=== PATIENT | male | born 1950 | race Caucasian/White ===

== ENCOUNTER 2020-02-06 11:26 | Inpatient (IN) | payer MEDICARE, MEDICAID ==
[2020-02-06] VITALS (7 sets, daily range): BP systolic 135–139; BP diastolic 80–88
[~2020-02-06] VITALS: Ht 182.9 cm; Wt 90.3 kg
[~2020-02-06 11:26] MED LIST: ASPI-1265 PO; CARV3.122 PO; CLOP75TA33 PO; LISI-600 PO
[2020-02-06] MEDS ORDERED: HYDR-4353 PO (12:01)
[2020-02-06] MEDS ORDERED: ATOR40TA PO (12:03)
[2020-02-06] MEDS ORDERED: LORazepam 0.5 MG tablet PO PRN (12:15)
[2020-02-06] MEDS ORDERED: diphenhydrAMINE 25mg capsule PO PRN (12:15)
[2020-02-06] MEDS: normal saline 1,000 ML IV SCH ×2 (16:11→22:15)
[2020-02-06] MEDS ORDERED: LIDOcaine 1% (10mg/ml)w/preservative injection 20ml MDV ONE (19:18)
[2020-02-06] MEDS ORDERED: midazolam 2 mg/2 ml injection ONE (19:18)
[2020-02-06] MEDS ORDERED: fentaNYL/PF 50MCG/1 ML 2ML syringe ONE (19:18)
[2020-02-06] MEDS ORDERED: iohexol 350MG/ML 100ml bottle IV ONE (19:18)
--- NOTE | 2020-02-06 19:38 | NUR ---
Pt taken to the grass farm laborer.
[2020-02-06] MEDS ORDERED: OXAZEpam 15mg capsule PO PRN (20:55)
[2020-02-06] MEDS ORDERED: ondansetron/PF 4mg/2ml inj IV PRN (20:55)
[2020-02-06] MEDS ORDERED: acetaminophen 325mg tablet PO PRN (20:55)
[2020-02-06] MEDS ORDERED: HYDROcodone/acetaminophen 10/325mg tab PO PRN (20:55)
[2020-02-06] MEDS ORDERED: proCHLORperazine 10 MG/2 ml inj IV PRN (20:55)
[2020-02-07] MEDS: HYDROcodone/acetaminophen 10/325mg tab PO SCH ×4 (02:00→20:00)
[2020-02-07 02:48] VITALS: BP 124/79
[2020-02-07 06:11] LABS: BASOPHILS % (AUTO) 0.8 % (0-1); EOSINOPHILS # (AUTO) 0.3 X10'3 (0-0.9); EOSINOPHILS % (AUTO) 5.4 % (0-6); HEMATOCRIT 45.6 % (42.0-52.0); HEMOGLOBIN 15.5 g/dl (14.0-17.9); LYMPHOCYTES # (AUTO) 0.5 X10'3 (1.1-4.8); LYMPHOCYTES % (AUTO) 9.8 % (21-51); MEAN CORPUSCULAR HEMOGLOBIN 36.2 PG (27.0-31.0); MEAN CORPUSCULAR HGB CONC 33.9 g/dL (33.0-36.5); MEAN CORPUSCULAR VOLUME 106.9 FL (78-98); MEAN PLATELET VOLUME 8.2 FL (7.4-10.4); MONOCYTES # (AUTO) 0.4 X10'3 (0-0.9); MONOCYTES % (AUTO) 7.5 % (2-12); NEUTROPHILS # (AUTO) 4.2 X10'3 (1.8-7.7); NEUTROPHILS % (AUTO) 76.5 % (42-75); PLATELET COUNT 150 X10'3 (140-440); RED BLOOD COUNT 4.27 X10'6 (4.70-6.10); RED CELL DISTRIBUTION WIDTH 13.9 % (11.5-14.5); WHITE BLOOD COUNT 5.5 X10'3 (4.5-11.0)
[2020-02-07 06:31] LABS: ALANINE AMINOTRANSFERASE 19 U/L (12-78); ALBUMIN 3.1 G/DL (3.4-5.0); ALBUMIN/GLOBULIN RATIO 0.7 (1.1-1.5); ALKALINE PHOSPHATASE 66 IU/L (46-116); ANION GAP 8 (8-16); ASPARTATE AMINO TRANSFERASE 18 U/L (10-37); BILIRUBIN,TOTAL 1.5 MG/DL (0.1-1.0); BLOOD UREA NITROGEN 21 MG/DL (7-18); BUN/CREATININE RATIO 16.8 (5.4-32.0); CALCIUM 7.4 MG/DL (8.5-10.1); CHLORIDE 109 MMOL/L (99-107); CHOL/HDL RATIO 5.1 (0.00-4.99); CHOLESTEROL 184 MG/DL (0-200); CREATININE 1.25 MG/DL (0.60-1.10); GLUCOSE 93 MG/DL (70-104); HDL CHOLESTEROL 36 MG/DL (35-60); LDL CHOLESTEROL 126 MG/DL (50-100); POTASSIUM 3.9 MMOL/L (3.5-5.1); SODIUM 141 MMOL/L (135-145); TOTAL CARBON DIOXIDE 23.7 MMOL/L (24-32); TOTAL PROTEIN 7.8 G/DL (6.4-8.2); TRIGLYCERIDES 124 MG/DL (20-135); eGFR 57 ML/MIN
[2020-02-07 07:00] VITALS: BP 150/90
--- NOTE | 2020-02-07 07:19 | NUR ---
Patient in room PCU 3013. I have received report from Yanira LINCOLN and had the opportunity to ask questions and assume patient care.
[2020-02-07] MEDS: carVEDilol 3.125mg tablet PO SCH ×2 (07:33→20:56)
[2020-02-07] MEDS: aspirin 81mg tab.chew PO SCH (07:33)
[2020-02-07] MEDS: atorvastatin 20mg tablet PO SCH (07:33)
[2020-02-07] MEDS ORDERED: heparin 10,000 units/1 ML INJ ONE ×2 (08:00)
[2020-02-07] MEDS ORDERED: sodium bicarbonate (8.4%) 1 mEq/ml syringe ONE (08:00)
[2020-02-07] MEDS ORDERED: MAGNESIUM SULFATE 4 MEQ/ML (5gm/10ml) injection ONE (08:00)
[2020-02-07] MEDS ORDERED: calcium chloride 100 MG/1 ML inj IV ONE (08:00)
[2020-02-07] MEDS ORDERED: heparin 1,000 units/ml 10ml inj ONE (08:00)
[2020-02-07] MEDS ORDERED: LIDOcaine 2% (20 mg/ml) 5ml cardiac syringe ONE (08:00)
[2020-02-07] MEDS ORDERED: phenylephrine 10mg/ml inj. ONE (08:00)
[2020-02-07] MEDS ORDERED: methylPREDNISolone sod. succ. 500mg inj ONE (08:00)
[2020-02-07] MEDS ORDERED: aminocaproic acid 250 MG/1 ML inj. ONE (08:00)
[2020-02-07] MEDS ORDERED: etomidate 2mg/ml inj. ONE (08:00)
[2020-02-07] MEDS ORDERED: potassium Cl 2 mEq/ml inj IV ONE (08:00)
[2020-02-07] MEDS ORDERED: albumin (human) 25% 100 ML IV solution IV ONE (08:00)
[2020-02-07 09:24] LABS: PARTIAL THROMBOPLASTIN TIME 26 SECONDS (22-32)
[2020-02-07 11:00] VITALS: BP 124/77
[2020-02-07 11:20] LABS: CLARITY,URINE CLEAR (Clear); COLOR,URINE YELLOW (Yellow); GLUCOSE, URINE NEGATIVE (Neg); KETONES,URINE NEGATIVE (Neg); LEUKOCYTE ESTERASE ,URINE NEGATIVE (Neg); NITRITES, URINE NEGATIVE (Neg); OCCULT BLOOD,URINE NEGATIVE (Neg); PROTEIN,URINE NEGATIVE (Neg); UA COLLECTION TYPE CLN CATCH MIDSTREAM
[2020-02-07 11:40] LABS: ABG BASE EXCESS -5.1 mmol/L (-2.0-2.0); ABG HCO3 18.1 mmol/L (22.0-26.0); ABG OXYGEN SATURATION 95.2 % (94-97); ABG PCO2 (T) 29.4 mmHg (35.0-48.0); ABG PO2 (T) 76.6 mmHg (75.0-100.0); ALLEN'S TEST POSITIVE; FCOHb 0.7 % (0.0-3.9); FMetHb 0.2 % (0.0-1.5); FO2Hb 94.3 % (94-97); TOTAL HEMOGLOBIN 15.7 G/dl (14.0-18.0)
[2020-02-07] MEDS ORDERED: iohexol 350MG/ML 100ml bottle IV ONE (12:20)
--- NOTE | 2020-02-07 14:19 | NUR ---
Problems reprioritized. Patient report given, questions answered & plan of care reviewed with Barbara LINCOLN. Patient is resting comfortably in no apparent distress.
--- NOTE | 2020-02-07 14:19 | NUR ---
Patient in room PCU 3013. I have received report from Leslie LINCOLN and had the opportunity to ask questions and assume patient care.
[2020-02-07 15:00] VITALS: BP 128/84
[2020-02-07] MEDS: HYDROcodone/acetaminophen 5mg/325mg tablet PO PRN (15:48)
[2020-02-07 18:00] VITALS: BP 151/88
--- NOTE | 2020-02-07 18:14 | NUR ---
Problems reprioritized. Patient report given, questions answered & plan of care reviewed with Twin RN.
--- NOTE | 2020-02-07 19:08 | NUR ---
Patient in room PCU 3013. I have received report from Barbara LINCOLN and had the opportunity to ask questions and assume patient care.
[2020-02-07 22:00] VITALS: BP 122/74
[2020-02-08 02:00] VITALS: BP 120/76
[2020-02-08] MEDS: HYDROcodone/acetaminophen 10/325mg tab PO SCH ×4 (02:00→19:23)
--- NOTE | 2020-02-08 06:03 | NUR ---
Problems reprioritized. Patient report given, questions answered & plan of care reviewed with Barbara LINCOLN. Patient is resting comfortably and is no distress and this time.
--- NOTE | 2020-02-08 06:25 | NUR ---
Patient in room PCU 3013. I have received report from Twin LINCOLN and had the opportunity to ask questions and assume patient care.
[2020-02-08 07:00] VITALS: BP 94/65
[2020-02-08] MEDS: atorvastatin 20mg tablet PO SCH (07:35)
[2020-02-08] MEDS: aspirin 81mg tab.chew PO SCH (07:35)
[2020-02-08] MEDS: carVEDilol 3.125mg tablet PO SCH ×2 (07:36→19:21)
[2020-02-08 09:40] LABS: BASOPHILS % (AUTO) 0.5 % (0-1); EOSINOPHILS # (AUTO) 0.3 X10'3 (0-0.9); EOSINOPHILS % (AUTO) 4.4 % (0-6); HEMATOCRIT 42.3 % (42.0-52.0); HEMOGLOBIN 14.3 g/dl (14.0-17.9); LYMPHOCYTES # (AUTO) 0.5 X10'3 (1.1-4.8); LYMPHOCYTES % (AUTO) 8.6 % (21-51); MEAN CORPUSCULAR HEMOGLOBIN 35.7 PG (27.0-31.0); MEAN CORPUSCULAR HGB CONC 33.7 g/dL (33.0-36.5); MEAN CORPUSCULAR VOLUME 105.7 FL (78-98); MEAN PLATELET VOLUME 8.1 FL (7.4-10.4); MONOCYTES # (AUTO) 0.5 X10'3 (0-0.9); MONOCYTES % (AUTO) 7.4 % (2-12); NEUTROPHILS # (AUTO) 4.9 X10'3 (1.8-7.7); NEUTROPHILS % (AUTO) 79.1 % (42-75); PLATELET COUNT 150 X10'3 (140-440); RED CELL DISTRIBUTION WIDTH 13.9 % (11.5-14.5); WHITE BLOOD COUNT 6.1 X10'3 (4.5-11.0)
[2020-02-08 09:46] LABS: ALBUMIN 2.9 G/DL (3.4-5.0); ANION GAP 4 (8-16); BLOOD UREA NITROGEN 19 MG/DL (7-18); BUN/CREATININE RATIO 17.6 (5.4-32.0); CALCIUM 8.3 MG/DL (8.5-10.1); CHLORIDE 106 MMOL/L (99-107); CREATININE 1.08 MG/DL (0.60-1.10); GLUCOSE 93 MG/DL (70-104); POTASSIUM 4.2 MMOL/L (3.5-5.1); SODIUM 138 MMOL/L (135-145); eGFR 67 ML/MIN
[2020-02-08 11:00] VITALS: BP 125/79
[2020-02-08 15:00] VITALS: BP 120/78
--- NOTE | 2020-02-08 17:12 | NUR ---
[place]rientee documentation: I have reviewed and agree with all interventions, assessments performed and documented by Mendy LINCOLN [place] Medication Administration: For this medication-pass time frame, all medication were reviewed, dispensed, administered and documented per hospital policy by Mendy LINCOLN.
[2020-02-08 18:00] VITALS: BP 125/77
--- NOTE | 2020-02-08 18:00 | NUR ---
Patient in room PCU 3013. I have received report from Barbara LINCOLN and had the opportunity to ask questions and assume patient care.
--- NOTE | 2020-02-08 18:23 | NUR ---
Problems reprioritized. Patient report given, questions answered & plan of care reviewed with Twin RN.
[2020-02-08 22:00] VITALS: BP 125/73
[2020-02-08] MEDS: HYDROcodone/acetaminophen 5mg/325mg tablet PO PRN (23:03)
[2020-02-09 02:00] VITALS: BP 115/70
[2020-02-09 06:00] VITALS: BP 105/72
--- NOTE | 2020-02-09 06:00 | NUR ---
Patient in room PCU 3013. I have received report from JIM LINCOLN and had the opportunity to ask questions and assume patient care.
--- NOTE | 2020-02-09 06:37 | NUR ---
Problems reprioritized. Patient report given, questions answered & plan of care reviewed with Gloria LINCOLN. Patient is stable and resting comfortably at this time.
[2020-02-09 06:41] LABS: ALBUMIN 2.9 G/DL (3.4-5.0); ANION GAP 6 (8-16); BLOOD UREA NITROGEN 21 MG/DL (7-18); BUN/CREATININE RATIO 17.8 (5.4-32.0); CALCIUM 8.1 MG/DL (8.5-10.1); CHLORIDE 106 MMOL/L (99-107); CREATININE 1.18 MG/DL (0.60-1.10); GLUCOSE 86 MG/DL (70-104); POTASSIUM 3.7 MMOL/L (3.5-5.1); SODIUM 139 MMOL/L (135-145); TOTAL CARBON DIOXIDE 26.9 MMOL/L (24-32); eGFR 61 ML/MIN
[2020-02-09] MEDS: carVEDilol 3.125mg tablet PO SCH ×2 (07:51→20:03)
[2020-02-09] MEDS: aspirin 81mg tab.chew PO SCH (07:51)
[2020-02-09] MEDS: atorvastatin 20mg tablet PO SCH (07:51)
[2020-02-09] MEDS ORDERED: Insulin Reg/NS 100units/100mL 100 ML IV SCH (09:31)
[2020-02-09] MEDS ORDERED: gabapentin 400mg capsule PO ONE (09:35)
[2020-02-09] MEDS ORDERED: MALTODEXTRIN/FRUCTOSE 0.68 KCAL/ML LIQUID 296ML BOTTLE PO ONE (09:35)
[2020-02-09] MEDS ORDERED: MESSAGE TO NURSING PO ONE (09:35)
[2020-02-09] MEDS ORDERED: vancomycin/NS 1 GM ADD-VANTAGE 250 ML IV ONE (09:35)
[2020-02-09] MEDS ORDERED: dextrose 50%-water 50ml dispensing syringe IV PRN (09:35)
[2020-02-09] MEDS ORDERED: cefazolin/dext.iso 2gm/50ml 50 ML IV ONE (09:35)
[2020-02-09] MEDS ORDERED: insulin glargine (Lantus) pen - multi-dose SQ PRN (09:35)
[2020-02-09] MEDS ORDERED: ringers solution, lacted 1,000 ML IV ONE (09:43)
--- NOTE | 2020-02-09 10:41 | NUR ---
Spoke with Brie from [facility] and confirmed they have blood units available for scheduled surgery as ordered by .
[2020-02-09 11:00] VITALS: BP 133/77
[2020-02-09 15:00] VITALS: BP 120/72
[2020-02-09 18:00] VITALS: BP 148/93
--- NOTE | 2020-02-09 18:26 | NUR ---
Problems reprioritized. Patient report given, questions answered & plan of care reviewed with SHIRLENE RN.
--- NOTE | 2020-02-09 18:30 | NUR ---
Patient in room PCU 3013. I have received report from Linda LINCOLN and had the opportunity to ask questions and assume patient care.
[2020-02-09 22:00] VITALS: BP 126/72
[2020-02-09] MEDS ORDERED: mupirocin 2% nasal ointment 1gm UD NS SCH (22:51)
[2020-02-10] VITALS (24 sets, daily range): BP systolic 79–128; BP diastolic 44–86
[2020-02-10] MEDS ORDERED: MALTODEXTRIN/FRUCTOSE 0.68 KCAL/ML LIQUID 296ML BOTTLE PO ONE
[2020-02-10] MEDS ORDERED: vancomycin/NS 1 GM ADD-VANTAGE 250 ML IV ONE (05:00)
[2020-02-10] MEDS ORDERED: ROPIVAcaine 0.5% (5mg/ml) 30ml vial ONE (05:07)
[2020-02-10 05:27] LABS: BASOPHILS % (AUTO) 0.4 % (0-1); EOSINOPHILS # (AUTO) 0.3 X10'3 (0-0.9); EOSINOPHILS % (AUTO) 3.8 % (0-6); HEMATOCRIT 43.4 % (42.0-52.0); LYMPHOCYTES # (AUTO) 0.7 X10'3 (1.1-4.8); MEAN CORPUSCULAR HEMOGLOBIN 36.3 PG (27.0-31.0); MEAN CORPUSCULAR HGB CONC 34.5 g/dL (33.0-36.5); MEAN PLATELET VOLUME 8.3 FL (7.4-10.4); MONOCYTES # (AUTO) 0.7 X10'3 (0-0.9); MONOCYTES % (AUTO) 9.1 % (2-12); NEUTROPHILS # (AUTO) 5.7 X10'3 (1.8-7.7); NEUTROPHILS % (AUTO) 76.7 % (42-75); PLATELET COUNT 138 X10'3 (140-440); RED BLOOD COUNT 4.14 X10'6 (4.70-6.10); RED CELL DISTRIBUTION WIDTH 13.9 % (11.5-14.5); WHITE BLOOD COUNT 7.5 X10'3 (4.5-11.0)
[2020-02-10] MEDS ORDERED: gabapentin 400mg capsule PO ONE (05:30)
[2020-02-10] MEDS ORDERED: cefazolin/dext.iso 2gm/50ml 50 ML IV ONE (05:30)
[2020-02-10 05:41] LABS: PARTIAL THROMBOPLASTIN TIME 26 SECONDS (22-32)
[2020-02-10 05:50] LABS: ALANINE AMINOTRANSFERASE 19 U/L (12-78); ALBUMIN/GLOBULIN RATIO 0.6 (1.1-1.5); ALKALINE PHOSPHATASE 59 IU/L (46-116); ANION GAP 4 (8-16); ASPARTATE AMINO TRANSFERASE 19 U/L (10-37); BILIRUBIN,TOTAL 0.8 MG/DL (0.1-1.0); BLOOD UREA NITROGEN 19 MG/DL (7-18); BUN/CREATININE RATIO 19.4 (5.4-32.0); CALCIUM 8.3 MG/DL (8.5-10.1); CHLORIDE 107 MMOL/L (99-107); CREATININE 0.98 MG/DL (0.60-1.10); GLUCOSE 56 MG/DL (70-104); POTASSIUM 3.5 MMOL/L (3.5-5.1); SODIUM 138 MMOL/L (135-145); TOTAL CARBON DIOXIDE 26.7 MMOL/L (24-32); TOTAL PROTEIN 7.7 G/DL (6.4-8.2); eGFR 75 ML/MIN
[2020-02-10] MEDS ORDERED: ceFAZolin 1000mg inj ONE ×3 (05:51→19:17)
[2020-02-10] MEDS ORDERED: LORazepam 2 mg/ml vial IV ONE (06:00)
[2020-02-10] MEDS ORDERED: famotidine 20mg tablet PO ONE (06:00)
[2020-02-10] MEDS ORDERED: famotidine 10mg tablet PO ONE (06:00)
--- NOTE | 2020-02-10 06:00 | NUR ---
Patient in room PCU 3013. I have received report from Junior RN and had the opportunity to ask questions and assume patient care.
[2020-02-10] MEDS: mupirocin 2% nasal ointment 1gm UD NS SCH ×3 (06:02→21:09)
--- NOTE | 2020-02-10 06:14 | NUR ---
Problems reprioritized. Patient report given, questions answered & plan of care reviewed with Linda RN and Gabe given to day RN to be administered prior to transport.
[2020-02-10] MEDS ORDERED: protamine sulf. 10mg/ml inj. IV ONE ×2 (06:45→18:50)
[2020-02-10] MEDS ORDERED: nitroGLYCERIN in D5W 50mg/250ml (Tridil) infusion IV ONE (06:45)
[2020-02-10] MEDS ORDERED: isoflurane 100ml inhalation liquid IH ONE (06:45)
[2020-02-10] MEDS ORDERED: phenylephrine 10mg/ml inj. ONE (06:45)
[2020-02-10] MEDS ORDERED: calcium chloride 100 MG/1 ML inj IV ONE ×3 (06:45→18:44)
[2020-02-10] MEDS ORDERED: MIDAZolam 1mg/ml 10ml vial ONE (06:55)
[2020-02-10] MEDS ORDERED: fentaNYL /PF 50mcg/ml 5ml ampule ONE ×4 (06:56→18:38)
[2020-02-10] MEDS ORDERED: propofol inj 20 ML IV ONE (06:57)
[2020-02-10] MEDS ORDERED: pancuronium br 1mg/ml inj IV ONE (06:57)
[2020-02-10] MEDS ORDERED: LIDOcaine 2% (20mg/ml) 5ml vial ONE (06:57)
[2020-02-10 07:26] LABS: ABG BASE EXCESS -2.3 mmol/L (-2.0-2.0); ABG HCO3 22.3 mmol/L (22.0-26.0); ABG OXYGEN SATURATION 98.8 % (94-97); ABG PCO2 38.2 mmHg (35.0-48.0); ABG PO2 238.3 mmHg (75.0-100.0); CL (ABG) 107 mmol/L (98-110); FCOHb 0.1 % (0.0-3.9); FMetHb 0.8 % (0.0-1.5); FO2Hb 97.9 % (94-97); GLUCOSE (ABG) 90 mg/dl (70-140); IONIZED CA (ABG) 1.14 mmol/L (1.10-1.43); K (ABG) 3.7 mmol/L (3.5-5.0); TOTAL HEMOGLOBIN 14.9 G/dl (14.0-18.0)
[2020-02-10 08:56] LABS: ABG BASE EXCESS -2.2 mmol/L (-2.0-2.0); ABG HCO3 24.3 mmol/L (22.0-26.0); ABG OXYGEN SATURATION 99.1 % (94-97); ABG PO2 300.7 mmHg (75.0-100.0); CL (ABG) 105 mmol/L (98-110); FCOHb 0.2 % (0.0-3.9); FMetHb 0.4 % (0.0-1.5); FO2Hb 98.5 % (94-97); GLUCOSE (ABG) 100 mg/dl (70-140); IONIZED CA (ABG) 1.01 mmol/L (1.10-1.43); K (ABG) 5.2 mmol/L (3.5-5.0); TOTAL HEMOGLOBIN 11.6 G/dl (14.0-18.0)
[2020-02-10 09:51] LABS: ABG BASE EXCESS VENOUS -1.9 mmol/L; ABG HCO3 VENOUS 30.5 mmol/L; ABG PCO2 VENOUS 104.3 mmHg; ABG PO2 VENOUS 68.3 mmHg; CL (ABG) 104 mmol/L (98-110); FCOHb VENOUS 0.6 %; FHHb VENOUS 14.5 %; FMetHb VENOUS 0.3 %; FO2Hb VENOUS 84.6 %; GLUCOSE (ABG) 158 mg/dl (70-140); IONIZED CA (ABG) 1.09 mmol/L (1.10-1.43); K (ABG) 5.8 mmol/L (3.5-5.0); TOTAL HEMOGLOBIN 12.3 G/dl (14.0-18.0)
[2020-02-10 10:00] LABS: ABG BASE EXCESS -3.7 mmol/L (-2.0-2.0); ABG HCO3 24.2 mmol/L (22.0-26.0); ABG OXYGEN SATURATION 99.2 % (94-97); ABG PO2 286.7 mmHg (75.0-100.0); CL (ABG) 106 mmol/L (98-110); FCOHb 0.4 % (0.0-3.9); FMetHb 0.3 % (0.0-1.5); FO2Hb 98.5 % (94-97); GLUCOSE (ABG) 169 mg/dl (70-140); IONIZED CA (ABG) 1.08 mmol/L (1.10-1.43); TOTAL HEMOGLOBIN 12.2 G/dl (14.0-18.0)
[2020-02-10] MEDS ORDERED: desmopressin inj. 28 MCG in normal saline 100ml IV soln 93 ML IV ONE (10:15)
[2020-02-10 10:20] LABS: ABG BASE EXCESS -4.1 mmol/L (-2.0-2.0); ABG HCO3 21.4 mmol/L (22.0-26.0); ABG OXYGEN SATURATION 99.2 % (94-97); ABG PCO2 40.5 mmHg (35.0-48.0); ABG PO2 301.6 mmHg (75.0-100.0); CL (ABG) 106 mmol/L (98-110); FCOHb 0.6 % (0.0-3.9); FMetHb 0.4 % (0.0-1.5); FO2Hb 98.2 % (94-97); GLUCOSE (ABG) 174 mg/dl (70-140); IONIZED CA (ABG) 1.06 mmol/L (1.10-1.43); TOTAL HEMOGLOBIN 12.2 G/dl (14.0-18.0)
[2020-02-10 10:55] LABS: ABG HCO3 25.7 mmol/L (22.0-26.0); ABG OXYGEN SATURATION 99.1 % (94-97); ABG PCO2 51.7 mmHg (35.0-48.0); ABG PO2 283.8 mmHg (75.0-100.0); CL (ABG) 105 mmol/L (98-110); FCOHb 0.4 % (0.0-3.9); FMetHb 0.4 % (0.0-1.5); FO2Hb 98.3 % (94-97); GLUCOSE (ABG) 166 mg/dl (70-140); IONIZED CA (ABG) 1.05 mmol/L (1.10-1.43); TOTAL HEMOGLOBIN 11.6 G/dl (14.0-18.0)
[2020-02-10 11:26] LABS: ABG BASE EXCESS -1.5 mmol/L (-2.0-2.0); ABG HCO3 22.9 mmol/L (22.0-26.0); ABG PCO2 37.4 mmHg (35.0-48.0); ABG PO2 307.1 mmHg (75.0-100.0); CL (ABG) 107 mmol/L (98-110); FCOHb 0.1 % (0.0-3.9); FMetHb 0.4 % (0.0-1.5); FO2Hb 98.5 % (94-97); GLUCOSE (ABG) 151 mg/dl (70-140); IONIZED CA (ABG) 1.04 mmol/L (1.10-1.43); K (ABG) 5.5 mmol/L (3.5-5.0); TOTAL HEMOGLOBIN 11.3 G/dl (14.0-18.0)
[2020-02-10 11:50] LABS: ABG BASE EXCESS -2.9 mmol/L (-2.0-2.0); ABG OXYGEN SATURATION 98.9 % (94-97); ABG PCO2 38.8 mmHg (35.0-48.0); ABG PO2 293.8 mmHg (75.0-100.0); CL (ABG) 106 mmol/L (98-110); FCOHb 0.3 % (0.0-3.9); FMetHb 0.4 % (0.0-1.5); FO2Hb 98.2 % (94-97); GLUCOSE (ABG) 137 mg/dl (70-140); IONIZED CA (ABG) 1.03 mmol/L (1.10-1.43); K (ABG) 4.8 mmol/L (3.5-5.0)
[2020-02-10] MEDS: carVEDilol 3.125mg tablet PO SCH (12:18)
[2020-02-10] MEDS: aspirin 81mg tab.chew PO SCH (12:18)
[2020-02-10] MEDS: atorvastatin 20mg tablet PO SCH (12:19)
[2020-02-10 12:21] LABS: ABG BASE EXCESS -1.9 mmol/L (-2.0-2.0); ABG HCO3 20.6 mmol/L (22.0-26.0); ABG OXYGEN SATURATION 99.1 % (94-97); ABG PCO2 28.1 mmHg (35.0-48.0); ABG PO2 314.6 mmHg (75.0-100.0); CL (ABG) 107 mmol/L (98-110); FCOHb 0.3 % (0.0-3.9); FMetHb 0.3 % (0.0-1.5); FO2Hb 98.5 % (94-97); GLUCOSE (ABG) 122 mg/dl (70-140); IONIZED CA (ABG) 0.98 mmol/L (1.10-1.43); K (ABG) 4.4 mmol/L (3.5-5.0); TOTAL HEMOGLOBIN 10.3 G/dl (14.0-18.0)
[2020-02-10 12:45] LABS: ABG HCO3 24.2 mmol/L (22.0-26.0); ABG OXYGEN SATURATION 98.6 % (94-97); ABG PCO2 37.6 mmHg (35.0-48.0); ABG PO2 188.8 mmHg (75.0-100.0); CL (ABG) 109 mmol/L (98-110); FCOHb 0.2 % (0.0-3.9); FMetHb 0.4 % (0.0-1.5); GLUCOSE (ABG) 121 mg/dl (70-140); K (ABG) 4.7 mmol/L (3.5-5.0); TOTAL HEMOGLOBIN 10.1 G/dl (14.0-18.0)
[2020-02-10 13:50] LABS: ABG BASE EXCESS VENOUS 0.7 mmol/L; ABG HCO3 VENOUS 26.4 mmol/L; ABG PCO2 VENOUS 47.8 mmHg; ABG PO2 VENOUS 37.7 mmHg; CL (ABG) 109 mmol/L (98-110); FCOHb VENOUS 0.8 %; FHHb VENOUS 30.9 %; FMetHb VENOUS 0.6 %; FO2Hb VENOUS 67.7 %; GLUCOSE (ABG) 110 mg/dl (70-140); K (ABG) 3.9 mmol/L (3.5-5.0); TOTAL HEMOGLOBIN 9.1 G/dl (14.0-18.0)
[2020-02-10] MEDS ORDERED: morphine 10mg/ml inj. ONE (14:13)
[2020-02-10] MEDS ORDERED: albumin (Human) 5% 250ml 250 ML IV ONE ×6 (14:31→19:06)
[2020-02-10 14:40] LABS: PARTIAL THROMBOPLASTIN TIME 42 SECONDS (22-32)
[2020-02-10] MEDS ORDERED: nitroGLYCERIN-Tridil 50MG/D5W 250 ML IV PRN (14:43)
[2020-02-10] MEDS ORDERED: DOPamine 400mg/D5W 250ml 250 ML IV PRN (14:43)
[2020-02-10] MEDS ORDERED: sodium chloride 0.45% 1,000 ML IV SCH (14:43)
[2020-02-10] MEDS ORDERED: Insulin Reg/NS 100units/100mL 100 ML IV SCH (14:43)
[2020-02-10] MEDS ORDERED: niCARDipine-NS 40mg/200ml IVPB 200 ML IV PRN (14:43)
[2020-02-10] MEDS ORDERED: Neutra Phos packet PO PRN (14:45)
[2020-02-10] MEDS ORDERED: sodium phosphate inj. 15 MMOL in dextrose 5%-water 250 ML IV PRN (14:45)
[2020-02-10] MEDS ORDERED: HYDROcodone/acetaminophen 10/325mg tab PO PRN (14:45)
[2020-02-10] MEDS ORDERED: bisacodyl 10mg suppository rectal RC PRN (14:45)
[2020-02-10] MEDS ORDERED: dextrose 50%-water 50ml dispensing syringe IV PRN (14:45)
[2020-02-10] MEDS ORDERED: acetaminophen 325mg tablet PO PRN ×2 (14:45)
[2020-02-10] MEDS ORDERED: metoclopramide 5 mg/ml inj IV PRN (14:45)
[2020-02-10] MEDS ORDERED: albumin (Human) 5% 250ml 250 ML IV PRN (14:45)
[2020-02-10] MEDS ORDERED: sodium phosphate inj. 30 MMOL in dextrose 5%-water 250 ML IV PRN (14:45)
[2020-02-10] MEDS ORDERED: pantoprazole 40 MG vial IV ONE (14:45)
[2020-02-10] MEDS ORDERED: insulin glargine (Lantus) pen - multi-dose SQ PRN (14:45)
[2020-02-10] MEDS ORDERED: magnesium 4gm in 100ml NS 100 ML IV PRN (14:45)
[2020-02-10] MEDS ORDERED: ondansetron/PF 4mg/2ml inj IV PRN (14:45)
[2020-02-10] MEDS ORDERED: magnesium citrate 296ml oral solution PO PRN (14:45)
[2020-02-10] MEDS ORDERED: normal saline 250ml IV soln 250 ML IV PRN (14:45)
[2020-02-10] MEDS ORDERED: DOBUTamine-DoBUTrex 500mg/D5W 250 ML IV PRN (14:45)
[2020-02-10] MEDS ORDERED: magnesium hydroxide 30ml (MOM) UD suspension PO PRN (14:45)
[2020-02-10] MEDS ORDERED: mineral oil 133ml enema RC PRN (14:45)
[2020-02-10] MEDS ORDERED: magnesium 2GM in 50ml NS 50 ML IV PRN (14:45)
[2020-02-10] MEDS ORDERED: NORepinephrine 8mg/ 250ml NS 250 ML IV ONE (14:52)
[2020-02-10 14:55] LABS: BASOPHILS % (AUTO) 0.1 % (0-1); EOSINOPHILS % (AUTO) 0.2 % (0-6); HEMATOCRIT 29.3 % (42.0-52.0); HEMOGLOBIN 10.1 g/dl (14.0-17.9); LYMPHOCYTES # (AUTO) 0.3 X10'3 (1.1-4.8); LYMPHOCYTES % (AUTO) 4.5 % (21-51); MEAN CORPUSCULAR HEMOGLOBIN 36.6 PG (27.0-31.0); MEAN CORPUSCULAR HGB CONC 34.4 g/dL (33.0-36.5); MEAN CORPUSCULAR VOLUME 106.2 FL (78-98); MEAN PLATELET VOLUME 7.9 FL (7.4-10.4); MONOCYTES # (AUTO) 0.4 X10'3 (0-0.9); MONOCYTES % (AUTO) 4.6 % (2-12); NEUTROPHILS % (AUTO) 90.6 % (42-75); PLATELET COUNT 80 X10'3 (140-440); RED BLOOD COUNT 2.76 X10'6 (4.70-6.10); RED CELL DISTRIBUTION WIDTH 13.4 % (11.5-14.5); WHITE BLOOD COUNT 7.7 X10'3 (4.5-11.0)
[2020-02-10 15:00] LABS: ABG BASE EXCESS -0.8 mmol/L (-2.0-2.0); ABG HCO3 24.1 mmol/L (22.0-26.0); ABG OXYGEN SATURATION 93.7 % (94-97); ABG PCO2 (T) 39.1 mmHg (35.0-48.0); ABG PO2 (T) 74.1 mmHg (75.0-100.0); FCOHb 0.3 % (0.0-3.9); FMetHb 0.1 % (0.0-1.5); FO2Hb 93.3 % (94-97); PEEP 5 cm H2O; RESPIRATORY RATE 12 b/min; TIDAL VOLUME 650 mL; TOTAL HEMOGLOBIN 10.8 G/dl (14.0-18.0)
[2020-02-10 15:11] LABS: ALANINE AMINOTRANSFERASE 15 U/L (12-78); ALBUMIN 2.6 G/DL (3.4-5.0); ALKALINE PHOSPHATASE 35 IU/L (46-116); ASPARTATE AMINO TRANSFERASE 63 U/L (10-37); BILIRUBIN,TOTAL 0.9 MG/DL (0.1-1.0); BLOOD UREA NITROGEN 20 MG/DL (7-18); BUN/CREATININE RATIO 16.5 (5.4-32.0); CALCIUM 8.4 MG/DL (8.5-10.1); CHLORIDE 112 MMOL/L (99-107); CREATININE 1.21 MG/DL (0.60-1.10); GLUCOSE 98 MG/DL (70-104); MAGNESIUM 3.2 MG/DL (1.5-2.4); PHOSPHORUS 1.6 MG/DL (2.3-4.5); TOTAL CARBON DIOXIDE 26.2 MMOL/L (24-32); TOTAL PROTEIN 5.1 G/DL (6.4-8.2); eGFR 59 ML/MIN
[2020-02-10 15:21] LABS: ANION GAP 6 (8-16); POTASSIUM 3.7 MMOL/L (3.5-5.1); SODIUM 144 MMOL/L (135-145)
[2020-02-10] MEDS: ceFAZolin 1GM/D5W- ADD-VANTAGE 50 ML IV SCH (16:20)
[2020-02-10] MEDS: NORepinephrine 8mg/ 250ml NS 250 ML IV SCH (16:21)
[2020-02-10] MEDS: potassium Cl 20mEq/100mL bag 100 ML IV PRN ×2 (16:27→18:16)
[2020-02-10] MEDS: Insulin Reg/NS 100units/100mL 100 ML IV SCH (16:29)
[2020-02-10] MEDS: morphine 4 MG/ML inj SYRINge IV PRN ×4 (16:33→21:55)
[2020-02-10] MEDS ORDERED: HUM PROTHROMBIN CPLX(PCC)4FACT 1,000 UNIT VIAL IV ONE (16:35)
[2020-02-10 16:36] LABS: BASOPHILS % (AUTO) 0.2 % (0-1); EOSINOPHILS % (AUTO) 0 % (0-6); HEMATOCRIT 25.6 % (42.0-52.0); HEMOGLOBIN 8.9 g/dl (14.0-17.9); LYMPHOCYTES # (AUTO) 0.3 X10'3 (1.1-4.8); LYMPHOCYTES % (AUTO) 3.3 % (21-51); MEAN CORPUSCULAR HEMOGLOBIN 36.6 PG (27.0-31.0); MEAN CORPUSCULAR HGB CONC 34.6 g/dL (33.0-36.5); MEAN CORPUSCULAR VOLUME 105.7 FL (78-98); MEAN PLATELET VOLUME 7.2 FL (7.4-10.4); MONOCYTES # (AUTO) 0.5 X10'3 (0-0.9); MONOCYTES % (AUTO) 6.8 % (2-12); NEUTROPHILS # (AUTO) 6.9 X10'3 (1.8-7.7); NEUTROPHILS % (AUTO) 89.7 % (42-75); PLATELET COUNT 113 X10'3 (140-440); RED BLOOD COUNT 2.42 X10'6 (4.70-6.10); RED CELL DISTRIBUTION WIDTH 13.5 % (11.5-14.5); WHITE BLOOD COUNT 7.7 X10'3 (4.5-11.0)
[2020-02-10 16:52] LABS: PARTIAL THROMBOPLASTIN TIME 50 SECONDS (22-32)
[2020-02-10] MEDS ORDERED: rocuronium 10mg/ml inj IV ONE (18:38)
[2020-02-10] MEDS ORDERED: MIDAZolam 5mg/5ml vial ONE (18:38)
[2020-02-10] MEDS ORDERED: epiNEPHrine 0.1mg/ml 10ml syringe ONE ×2 (18:43→18:44)
[2020-02-10] MEDS ORDERED: dexamethasone sod phosphate 4mg/ml inj. ONE (18:44)
--- NOTE | 2020-02-10 18:47 | NUR ---
Received to room , accompanied by MDs and surgical crew. Placed on ventilator, to linux devops engineer, arterial line and PA line pressure monitored. Chest tubes to suction at 20 cm. Villatoro cath to gravity drainage. Dressings are dry and intact. See assessment record. All vasoactive drugs are infusing via central line.
[2020-02-10] MEDS ORDERED: NORepinephrine 8 MG in NS 250 ML BAG (32 mcg/ml) IV ONE (18:50)
[2020-02-10] MEDS ORDERED: sevoflurane 250ml liquid IH ONE (18:50)
--- NOTE | 2020-02-10 18:58 | NUR ---
I have received report and assumed care of pt, Pt is on the ventilator, Call placed to nursing day haul youth supervisor updated that pt is to go back to OR per Dr. Bhandari to see why pt is having a high chest tube output. Or crew called. new Chest tube atrium placed, pt taken to or with anaesthesia and VICE PRESIDENT FINANCIAL. Blood work sent to lab, orders placed per orders for blood products.
[2020-02-10 19:12] LABS: BASOPHILS % (AUTO) 0.1 % (0-1); EOSINOPHILS % (AUTO) 0.1 % (0-6); HEMATOCRIT 25.5 % (42.0-52.0); HEMOGLOBIN 8.7 g/dl (14.0-17.9); LYMPHOCYTES # (AUTO) 0.2 X10'3 (1.1-4.8); LYMPHOCYTES % (AUTO) 2.9 % (21-51); MEAN CORPUSCULAR HEMOGLOBIN 34.9 PG (27.0-31.0); MEAN CORPUSCULAR VOLUME 102.7 FL (78-98); MEAN PLATELET VOLUME 8.3 FL (7.4-10.4); MONOCYTES # (AUTO) 0.4 X10'3 (0-0.9); MONOCYTES % (AUTO) 4.9 % (2-12); NEUTROPHILS # (AUTO) 6.9 X10'3 (1.8-7.7); PLATELET COUNT 132 X10'3 (140-440); RED BLOOD COUNT 2.49 X10'6 (4.70-6.10); WHITE BLOOD COUNT 7.5 X10'3 (4.5-11.0)
[2020-02-10 19:15] LABS: PARTIAL THROMBOPLASTIN TIME 66 SECONDS (22-32)
[2020-02-10 19:16] LABS: ALANINE AMINOTRANSFERASE 20 U/L (12-78); ALBUMIN 2.8 G/DL (3.4-5.0); ALBUMIN/GLOBULIN RATIO 1.2 (1.1-1.5); ALKALINE PHOSPHATASE 34 IU/L (46-116); ANION GAP 7 (8-16); ASPARTATE AMINO TRANSFERASE 86 U/L (10-37); BILIRUBIN,TOTAL 1.4 MG/DL (0.1-1.0); BLOOD UREA NITROGEN 21 MG/DL (7-18); BUN/CREATININE RATIO 17.9 (5.4-32.0); CALCIUM 7.5 MG/DL (8.5-10.1); CHLORIDE 111 MMOL/L (99-107); CREATININE 1.17 MG/DL (0.60-1.10); GLUCOSE 166 MG/DL (70-104); POTASSIUM 5.3 MMOL/L (3.5-5.1); SODIUM 143 MMOL/L (135-145); TOTAL CARBON DIOXIDE 24.6 MMOL/L (24-32); TOTAL PROTEIN 5.2 G/DL (6.4-8.2); eGFR 61 ML/MIN
[2020-02-10] MEDS: sennosides/docusate sodium tablet PO SCH (20:00)
[2020-02-10] MEDS ORDERED: dexmedetomidine inj. 400 MCG in normal saline 100ml IV soln 96 ML IV PRN (20:40)
[2020-02-10 20:45] LABS: ABG BASE EXCESS -3.4 mmol/L (-2.0-2.0); ABG HCO3 21.2 mmol/L (22.0-26.0); ABG OXYGEN SATURATION 96.6 % (94-97); ABG PCO2 (T) 33.8 mmHg (35.0-48.0); ABG PO2 (T) 94.6 mmHg (75.0-100.0); FCOHb 0.3 % (0.0-3.9); FMetHb 0.1 % (0.0-1.5); FO2Hb 96.2 % (94-97); PATIENT TEMPERATURE 35.6; PEEP 5 cm H2O; RESPIRATORY RATE 12 b/min; TIDAL VOLUME 650 mL; TOTAL HEMOGLOBIN 7.4 G/dl (14.0-18.0)
--- NOTE | 2020-02-10 20:55 | NUR ---
Received pt from [facility], pt is on a ventilator, new chest tube atriums in place. PA, CVL and Art line in place and transfused and zeroed. blood work sent to Lab,
[2020-02-10 20:56] LABS: BASOPHILS % (AUTO) 0 % (0-1); EOSINOPHILS % (AUTO) 0.1 % (0-6); HEMOGLOBIN 7.1 g/dl (14.0-17.9); LYMPHOCYTES # (AUTO) 0.3 X10'3 (1.1-4.8); LYMPHOCYTES % (AUTO) 3.5 % (21-51); MEAN CORPUSCULAR HEMOGLOBIN 35.8 PG (27.0-31.0); MEAN CORPUSCULAR HGB CONC 34.8 g/dL (33.0-36.5); MEAN CORPUSCULAR VOLUME 102.9 FL (78-98); MEAN PLATELET VOLUME 7.9 FL (7.4-10.4); MONOCYTES # (AUTO) 0.5 X10'3 (0-0.9); MONOCYTES % (AUTO) 7.1 % (2-12); NEUTROPHILS # (AUTO) 6.9 X10'3 (1.8-7.7); NEUTROPHILS % (AUTO) 89.3 % (42-75); PLATELET COUNT 106 X10'3 (140-440); RED BLOOD COUNT 1.97 X10'6 (4.70-6.10); RED CELL DISTRIBUTION WIDTH 14.8 % (11.5-14.5); WHITE BLOOD COUNT 7.7 X10'3 (4.5-11.0)
[2020-02-10 20:59] LABS: PARTIAL THROMBOPLASTIN TIME 29 SECONDS (22-32)
[2020-02-10 21:00] LABS: ALANINE AMINOTRANSFERASE 21 U/L (12-78); ALBUMIN 3.1 G/DL (3.4-5.0); ALBUMIN/GLOBULIN RATIO 1.4 (1.1-1.5); ALKALINE PHOSPHATASE 33 IU/L (46-116); ANION GAP 4 (8-16); ASPARTATE AMINO TRANSFERASE 101 U/L (10-37); BILIRUBIN,TOTAL 1.3 MG/DL (0.1-1.0); BLOOD UREA NITROGEN 20 MG/DL (7-18); BUN/CREATININE RATIO 16.1 (5.4-32.0); CALCIUM 7.9 MG/DL (8.5-10.1); CHLORIDE 113 MMOL/L (99-107); CREATININE 1.24 MG/DL (0.60-1.10); GLUCOSE 153 MG/DL (70-104); MAGNESIUM 2.5 MG/DL (1.5-2.4); PHOSPHORUS 3.1 MG/DL (2.3-4.5); POTASSIUM 5.1 MMOL/L (3.5-5.1); SODIUM 142 MMOL/L (135-145); TOTAL CARBON DIOXIDE 25.4 MMOL/L (24-32); TOTAL PROTEIN 5.3 G/DL (6.4-8.2); eGFR 57 ML/MIN
[2020-02-10] MEDS: gabapentin 300mg capsule PO SCH (21:07)
[2020-02-10] MEDS: vancomycin/NS 1 GM ADD-VANTAGE 250 ML IV SCH (21:07)
[2020-02-10 21:09] LABS: HEMATOCRIT 20.3 % (42.0-52.0)
--- NOTE | 2020-02-10 21:35 | NUR ---
spoke to Dr. Bhandari regarding pts low hemiglobin and hct. new orders to transfuse 1 unit PRBC now, recheck hg and HCT post transfusion, if HCT is less then 8.5 give and addition unit of PRBC.
[2020-02-10] MEDS: dexmedetomidine inj. 400 MCG in normal saline 100ml IV soln 96 ML IV PRN (22:59)
--- NOTE | 2020-02-10 23:20 | NUR ---
pt opens his eyes and nodes his head appropriately, medicated for pain as needed. Frequent turning to maintain skin integrity.
[2020-02-11] VITALS (28 sets, daily range): BP systolic 85–130; BP diastolic 53–87
[2020-02-11] MEDS: ceFAZolin 1GM/D5W- ADD-VANTAGE 50 ML IV SCH ×3 (00:40→16:54)
[2020-02-11 02:05] LABS: BASOPHILS % (AUTO) 0.1 % (0-1); EOSINOPHILS % (AUTO) 0 % (0-6); HEMATOCRIT 22.8 % (42.0-52.0); LYMPHOCYTES # (AUTO) 0.3 X10'3 (1.1-4.8); LYMPHOCYTES % (AUTO) 3.3 % (21-51); MEAN CORPUSCULAR HEMOGLOBIN 34.5 PG (27.0-31.0); MEAN CORPUSCULAR HGB CONC 35.1 g/dL (33.0-36.5); MEAN CORPUSCULAR VOLUME 98.5 FL (78-98); MEAN PLATELET VOLUME 7.8 FL (7.4-10.4); MONOCYTES # (AUTO) 0.5 X10'3 (0-0.9); MONOCYTES % (AUTO) 5.8 % (2-12); NEUTROPHILS # (AUTO) 7.9 X10'3 (1.8-7.7); NEUTROPHILS % (AUTO) 90.8 % (42-75); PLATELET COUNT 131 X10'3 (140-440); RED BLOOD COUNT 2.31 X10'6 (4.70-6.10); RED CELL DISTRIBUTION WIDTH 17.9 % (11.5-14.5); WHITE BLOOD COUNT 8.7 X10'3 (4.5-11.0)
[2020-02-11 02:18] LABS: PARTIAL THROMBOPLASTIN TIME 41 SECONDS (22-32)
[2020-02-11 02:21] LABS: ALANINE AMINOTRANSFERASE 28 U/L (12-78); ALBUMIN 3.2 G/DL (3.4-5.0); ALBUMIN/GLOBULIN RATIO 1.2 (1.1-1.5); ALKALINE PHOSPHATASE 37 IU/L (46-116); ANION GAP 6 (8-16); ASPARTATE AMINO TRANSFERASE 205 U/L (10-37); BILIRUBIN,TOTAL 1.1 MG/DL (0.1-1.0); BLOOD UREA NITROGEN 23 MG/DL (7-18); BUN/CREATININE RATIO 18.4 (5.4-32.0); CALCIUM 7.8 MG/DL (8.5-10.1); CHLORIDE 112 MMOL/L (99-107); CREATININE 1.25 MG/DL (0.60-1.10); GLUCOSE 125 MG/DL (70-104); MAGNESIUM 2.5 MG/DL (1.5-2.4); POTASSIUM 4.8 MMOL/L (3.5-5.1); SODIUM 142 MMOL/L (135-145); TOTAL CARBON DIOXIDE 24.4 MMOL/L (24-32); TOTAL PROTEIN 5.8 G/DL (6.4-8.2); eGFR 57 ML/MIN
[2020-02-11] MEDS: morphine 4 MG/ML inj SYRINge IV PRN ×3 (02:26→09:36)
--- NOTE | 2020-02-11 03:23 | NUR ---
second unit of PRBC transfusing
[2020-02-11 04:41] LABS: ABG BASE EXCESS -4.9 mmol/L (-2.0-2.0); ABG HCO3 19.3 mmol/L (22.0-26.0); ABG OXYGEN SATURATION 96.3 % (94-97); FCOHb 0.3 % (0.0-3.9); FMetHb 0.3 % (0.0-1.5); FO2Hb 95.7 % (94-97); PATIENT TEMPERATURE 36.5; PEEP 5 cm H2O; RESPIRATORY RATE 12 b/min; TIDAL VOLUME 650 mL; TOTAL HEMOGLOBIN 9.8 G/dl (14.0-18.0)
--- NOTE | 2020-02-11 06:11 | NUR ---
report to on coming shift, plan of care reviewed no changes in condition noted
[2020-02-11] MEDS: dexmedetomidine inj. 400 MCG in normal saline 100ml IV soln 96 ML IV PRN (07:11)
[2020-02-11] MEDS ORDERED: metoprolol tartrate 12.5mg (1/2 tablet) PO SCH (08:00)
[2020-02-11 08:15] LABS: HEMATOCRIT 25.8 % (42.0-52.0); HEMOGLOBIN 8.8 g/dl (14.0-17.9); MEAN CORPUSCULAR HEMOGLOBIN 33.6 PG (27.0-31.0); MEAN CORPUSCULAR HGB CONC 34.2 g/dL (33.0-36.5); MEAN CORPUSCULAR VOLUME 98.2 FL (78-98); MEAN PLATELET VOLUME 8.4 FL (7.4-10.4); PLATELET COUNT 108 X10'3 (140-440); RED BLOOD COUNT 2.63 X10'6 (4.70-6.10); RED CELL DISTRIBUTION WIDTH 17.5 % (11.5-14.5); WHITE BLOOD COUNT 7.6 X10'3 (4.5-11.0)
[2020-02-11] MEDS: sennosides/docusate sodium tablet PO SCH ×2 (08:27→21:07)
[2020-02-11] MEDS: gabapentin 300mg capsule PO SCH ×3 (08:27→21:06)
[2020-02-11] MEDS: mupirocin 2% nasal ointment 1gm UD NS SCH ×2 (08:28→21:07)
[2020-02-11] MEDS: aspirin 325mg tablet, delayed-release (Ecotrin) PO SCH (08:28)
[2020-02-11] MEDS: atorvastatin 10mg tablet PO SCH (08:28)
[2020-02-11] MEDS: vancomycin/NS 1 GM ADD-VANTAGE 250 ML IV SCH ×2 (09:23→21:08)
[2020-02-11] MEDS: carVEDilol 3.125mg tablet PO SCH ×2 (09:35→21:07)
[2020-02-11 09:41] LABS: ABG BASE EXCESS -6.1 mmol/L (-2.0-2.0); ABG HCO3 17.2 mmol/L (22.0-26.0); ABG OXYGEN SATURATION 97.7 % (94-97); ABG PCO2 (T) 26.6 mmHg (35.0-48.0); ABG PO2 (T) 118.4 mmHg (75.0-100.0); FCOHb 0.3 % (0.0-3.9); FMetHb 0.1 % (0.0-1.5); FO2Hb 97.3 % (94-97); PEEP 5 cm H2O; TOTAL HEMOGLOBIN 9.4 G/dl (14.0-18.0)
--- NOTE | 2020-02-11 12:14 | NUR ---
Initial: Pt admit with moderate and multivessel CAD. Pt POD#1 s/p AVR/MVR/CABG x 2. Pt just extubated this morning. Would benefit from heart healthy and s/p cardiac surgery nutrition therapy educations once stable. Pending documentation of PO intake s/p extubation however pt documented with 75-100% PO intake prior to surgery. Pt constipated with LBM 02/06. Pt received first dose of routine bowel care today and with multiple PRN bowel care medications available. Will continue to follow and monitor need for nutrition intervention. Recommendations: 1) Continue no concentrated sweets diet 2) Monitor need for ONS/additional protein 3) Routine bowel care 4) Scaled weights per rx 5) Heart healthy and s/p cardiac surgery nutrition therapy educations once stable Addendum: 02/11/20 at [address] Amended: Links added.
[2020-02-11] MEDS: HYDROcodone/acetaminophen 10/325mg tab PO PRN ×3 (12:50→22:32)
[2020-02-11] MEDS ORDERED: furosemide 40mg/4ml inj IV ONE (13:25)
[2020-02-11] MEDS: Insulin Reg/NS 100units/100mL 100 ML IV SCH (14:50)
[2020-02-11] MEDS ORDERED: carVEDilol 3.125mg tablet PO SCH (20:00)
[2020-02-11] MEDS: furosemide 40mg/4ml inj IV SCH (21:08)
[2020-02-11 21:40] LABS: HEMATOCRIT 27.3 % (42.0-52.0); HEMOGLOBIN 9.4 g/dl (14.0-17.9); MEAN CORPUSCULAR HEMOGLOBIN 34.5 PG (27.0-31.0); MEAN CORPUSCULAR HGB CONC 34.5 g/dL (33.0-36.5); MEAN CORPUSCULAR VOLUME 99.8 FL (78-98); MEAN PLATELET VOLUME 8.6 FL (7.4-10.4); PLATELET COUNT 146 X10'3 (140-440); RED BLOOD COUNT 2.74 X10'6 (4.70-6.10); RED CELL DISTRIBUTION WIDTH 17.8 % (11.5-14.5); WHITE BLOOD COUNT 16.8 X10'3 (4.5-11.0)
[2020-02-11] MEDS: NORepinephrine 8mg/ 250ml NS 250 ML IV SCH (22:29)
[2020-02-12] VITALS (25 sets, daily range): BP systolic 90–131; BP diastolic 58–91
[2020-02-12] MEDS: ceFAZolin 1GM/D5W- ADD-VANTAGE 50 ML IV SCH (00:32)
[2020-02-12 03:26] LABS: BASOPHILS % (AUTO) 0.1 % (0-1); EOSINOPHILS % (AUTO) 0 % (0-6); HEMATOCRIT 26.1 % (42.0-52.0); HEMOGLOBIN 8.8 g/dl (14.0-17.9); LYMPHOCYTES # (AUTO) 0.6 X10'3 (1.1-4.8); LYMPHOCYTES % (AUTO) 4.3 % (21-51); MEAN CORPUSCULAR HEMOGLOBIN 33.6 PG (27.0-31.0); MEAN CORPUSCULAR HGB CONC 33.9 g/dL (33.0-36.5); MEAN CORPUSCULAR VOLUME 99.1 FL (78-98); MONOCYTES # (AUTO) 1.4 X10'3 (0-0.9); MONOCYTES % (AUTO) 9.2 % (2-12); NEUTROPHILS % (AUTO) 86.4 % (42-75); PLATELET COUNT 132 X10'3 (140-440); RED BLOOD COUNT 2.63 X10'6 (4.70-6.10); RED CELL DISTRIBUTION WIDTH 17.6 % (11.5-14.5)
[2020-02-12 03:41] LABS: ALBUMIN 3.1 G/DL (3.4-5.0); ANION GAP 8 (8-16); BLOOD UREA NITROGEN 35 MG/DL (7-18); BUN/CREATININE RATIO 20.7 (5.4-32.0); CALCIUM 7.8 MG/DL (8.5-10.1); CHLORIDE 106 MMOL/L (99-107); CREATININE 1.69 MG/DL (0.60-1.10); GLUCOSE 164 MG/DL (70-104); MAGNESIUM 2.3 MG/DL (1.5-2.4); PHOSPHORUS 4.7 MG/DL (2.3-4.5); POTASSIUM 5.1 MMOL/L (3.5-5.1); SODIUM 138 MMOL/L (135-145); TOTAL CARBON DIOXIDE 23.6 MMOL/L (24-32); eGFR 40 ML/MIN
[2020-02-12] MEDS: HYDROcodone/acetaminophen 10/325mg tab PO PRN ×3 (05:18→19:19)
[2020-02-12] MEDS: sennosides/docusate sodium tablet PO SCH ×2 (07:33→20:52)
[2020-02-12] MEDS: furosemide 40mg/4ml inj IV SCH ×2 (07:33→20:52)
[2020-02-12] MEDS: carVEDilol 3.125mg tablet PO SCH ×2 (07:33→20:52)
[2020-02-12] MEDS: pantoprazole 40mg Tablet.DR PO SCH (07:34)
[2020-02-12] MEDS: atorvastatin 10mg tablet PO SCH (07:34)
[2020-02-12] MEDS: aspirin 325mg tablet, delayed-release (Ecotrin) PO SCH (07:34)
[2020-02-12] MEDS: mupirocin 2% nasal ointment 1gm UD NS SCH (07:34)
[2020-02-12] MEDS: gabapentin 300mg capsule PO SCH ×2 (07:34→13:28)
[2020-02-12] MEDS ORDERED: furosemide 40mg/4ml inj IV ONE (08:50)
--- NOTE | 2020-02-12 09:06 | NUR ---
CT removed at bedside by Galen Singleton. Insertion site asymptomatic covered with gauze and tape.
[2020-02-13] VITALS (25 sets, daily range): BP systolic 84–118; BP diastolic 49–80
[2020-02-13 02:58] LABS: BASOPHILS % (AUTO) 0.1 % (0-1); EOSINOPHILS % (AUTO) 0.1 % (0-6); HEMATOCRIT 25.2 % (42.0-52.0); HEMOGLOBIN 8.5 g/dl (14.0-17.9); LYMPHOCYTES # (AUTO) 0.7 X10'3 (1.1-4.8); LYMPHOCYTES % (AUTO) 4.9 % (21-51); MEAN CORPUSCULAR HEMOGLOBIN 33.6 PG (27.0-31.0); MEAN CORPUSCULAR HGB CONC 33.8 g/dL (33.0-36.5); MEAN CORPUSCULAR VOLUME 99.6 FL (78-98); MEAN PLATELET VOLUME 9.2 FL (7.4-10.4); MONOCYTES # (AUTO) 1.3 X10'3 (0-0.9); MONOCYTES % (AUTO) 9.2 % (2-12); NEUTROPHILS # (AUTO) 12.2 X10'3 (1.8-7.7); NEUTROPHILS % (AUTO) 85.7 % (42-75); PLATELET COUNT 102 X10'3 (140-440); RED BLOOD COUNT 2.53 X10'6 (4.70-6.10); RED CELL DISTRIBUTION WIDTH 16.9 % (11.5-14.5); WHITE BLOOD COUNT 14.2 X10'3 (4.5-11.0)
[2020-02-13 03:13] LABS: ALBUMIN 2.9 G/DL (3.4-5.0); ANION GAP 5 (8-16); BLOOD UREA NITROGEN 36 MG/DL (7-18); BUN/CREATININE RATIO 30.8 (5.4-32.0); CALCIUM 7.7 MG/DL (8.5-10.1); CHLORIDE 102 MMOL/L (99-107); CREATININE 1.17 MG/DL (0.60-1.10); GLUCOSE 118 MG/DL (70-104); PHOSPHORUS 3.7 MG/DL (2.3-4.5); SODIUM 135 MMOL/L (135-145); TOTAL CARBON DIOXIDE 28.4 MMOL/L (24-32); eGFR 61 ML/MIN
--- NOTE | 2020-02-13 06:18 | NUR ---
Patient in room ICU 2042. I have received report from Adonis LINCOLN and had the opportunity to ask questions and assume patient care.
--- NOTE | 2020-02-13 06:26 | NUR ---
Problems reprioritized. Patient report given, questions answered & plan of care reviewed with KRISTINE LINCOLN.
[2020-02-13] MEDS: furosemide 40mg/4ml inj IV SCH ×2 (08:00→19:35)
[2020-02-13] MEDS: carVEDilol 3.125mg tablet PO SCH ×3 (08:00→19:35)
[2020-02-13] MEDS: pantoprazole 40mg Tablet.DR PO SCH (08:00)
[2020-02-13] MEDS: sennosides/docusate sodium tablet PO SCH ×2 (08:00→19:35)
[2020-02-13] MEDS: atorvastatin 10mg tablet PO SCH (08:00)
[2020-02-13] MEDS: aspirin 325mg tablet, delayed-release (Ecotrin) PO SCH (08:00)
[2020-02-13 10:06] LABS: ACTIVATED CLOTTING TIME 116 SEC (101-148)
[2020-02-13 13:32] LABS: K (ABG) 6.5 mmol/L (3.5-5.0)
[2020-02-13 13:33] LABS: K (ABG) 6.8 mmol/L (3.5-5.0)
[2020-02-13 13:34] LABS: K (ABG) 6.4 mmol/L (3.5-5.0)
--- NOTE | 2020-02-13 15:47 | NUR ---
Orientee documentation: I have reviewed and agree with all interventions, assessments performed and documented by Fidelina LINCOLN. [place] Medication Administration: For this medication-pass time frame, all medication were reviewed, dispensed, administered and documented per hospital policy by Fidelina LINCOLN.
--- NOTE | 2020-02-13 16:05 | NUR ---
Patient in room ICU 2042. I have received report from LATONIA Kitchen and LATONIA Blair and had the opportunity to ask questions and assume patient care.
--- NOTE | 2020-02-13 16:05 | NUR ---
Problems reprioritized. Patient report given, questions answered & plan of care reviewed with Berna LINCOLN.
--- NOTE | 2020-02-13 18:12 | NUR ---
Problems reprioritized. Patient report given, questions answered & plan of care reviewed with Rach RN. Patient was resting comfortably in chair during report.
--- NOTE | 2020-02-13 18:13 | NUR ---
Problems reprioritized. Patient report given, questions answered & plan of care reviewed with [].
--- NOTE | 2020-02-13 18:15 | NUR ---
Patient in room ICU 2042. I have received report from LATONIA Echevarria and had the opportunity to ask questions and assume patient care. Patient is sitting up in bedside chair, no obvious distress. Reports having a mild headache and requested a [place], I will continue to monitor.
[2020-02-13] MEDS: HYDROcodone/acetaminophen 10/325mg tab PO PRN (18:17)
[2020-02-14] VITALS (27 sets, daily range): BP systolic 88–152; BP diastolic 55–93
[2020-02-14] MEDS: HYDROcodone/acetaminophen 10/325mg tab PO PRN ×2 (02:37→21:40)
[2020-02-14 04:38] LABS: BASOPHILS % (AUTO) 0.1 % (0-1); EOSINOPHILS # (AUTO) 0.2 X10'3 (0-0.9); EOSINOPHILS % (AUTO) 2.1 % (0-6); HEMATOCRIT 24.9 % (42.0-52.0); HEMOGLOBIN 8.6 g/dl (14.0-17.9); LYMPHOCYTES # (AUTO) 0.6 X10'3 (1.1-4.8); LYMPHOCYTES % (AUTO) 5.9 % (21-51); MEAN CORPUSCULAR HEMOGLOBIN 34.9 PG (27.0-31.0); MEAN CORPUSCULAR HGB CONC 34.6 g/dL (33.0-36.5); MEAN CORPUSCULAR VOLUME 100.7 FL (78-98); MEAN PLATELET VOLUME 9.3 FL (7.4-10.4); MONOCYTES # (AUTO) 0.8 X10'3 (0-0.9); MONOCYTES % (AUTO) 8.2 % (2-12); NEUTROPHILS # (AUTO) 8.4 X10'3 (1.8-7.7); NEUTROPHILS % (AUTO) 83.7 % (42-75); PLATELET COUNT 88 X10'3 (140-440); RED BLOOD COUNT 2.47 X10'6 (4.70-6.10); RED CELL DISTRIBUTION WIDTH 16.8 % (11.5-14.5); WHITE BLOOD COUNT 10.1 X10'3 (4.5-11.0)
[2020-02-14 04:53] LABS: ALBUMIN 2.7 G/DL (3.4-5.0); ANION GAP 5 (8-16); BLOOD UREA NITROGEN 36 MG/DL (7-18); BUN/CREATININE RATIO 27.7 (5.4-32.0); CALCIUM 7.9 MG/DL (8.5-10.1); CHLORIDE 103 MMOL/L (99-107); GLUCOSE 100 MG/DL (70-104); MAGNESIUM 1.8 MG/DL (1.5-2.4); PHOSPHORUS 3.2 MG/DL (2.3-4.5); POTASSIUM 3.8 MMOL/L (3.5-5.1); SODIUM 137 MMOL/L (135-145); TOTAL CARBON DIOXIDE 29.5 MMOL/L (24-32); eGFR 54 ML/MIN
--- NOTE | 2020-02-14 06:17 | NUR ---
Problems reprioritized. Patient report given, questions answered & plan of care reviewed with LATONIA Nelson.
--- NOTE | 2020-02-14 06:23 | NUR ---
Patient in room ICU 2042. I have received report from Rach LINCOLN and had the opportunity to ask questions and assume patient care. Patient was resting comfortably during report and no distress noted.
[2020-02-14] MEDS: carVEDilol 3.125mg tablet PO SCH ×2 (07:34→19:55)
[2020-02-14] MEDS: atorvastatin 10mg tablet PO SCH (07:34)
[2020-02-14] MEDS: pantoprazole 40mg Tablet.DR PO SCH (07:34)
[2020-02-14] MEDS: aspirin 325mg tablet, delayed-release (Ecotrin) PO SCH (07:34)
[2020-02-14] MEDS: sennosides/docusate sodium tablet PO SCH ×2 (07:34→19:55)
[2020-02-14] MEDS: furosemide 40mg tablet PO SCH ×2 (09:10→19:55)
--- NOTE | 2020-02-14 12:56 | NUR ---
Got patient up out of bed, he marched in place and then pivoted over to the chair. He was weak and unsteady, but eager to get moving. Encouraged use of incentive spirometer and patient was compliant.
--- NOTE | 2020-02-14 13:30 | NUR ---
Upon assessment by this nurse and primary RN. Patient was noted to have a change in neuro status. Full neuro assessment performed with changes to his appearance AEB left facial droop, left arm drifting, left lower extremity weakness, and fatigue. Dr Bhandari notified and stroke alert called. Patient taken to CT, MD at bedside upon return. Neuro tele consult completed. Will continue to monitor closely.
[2020-02-14] MEDS ORDERED: iohexol 350MG/ML 100ml bottle IV ONE (14:43)
--- NOTE | 2020-02-14 14:45 | NUR ---
arrived to ct to await pt arrival from ICU. He has left side upper and lower extremity drift and decreased sensation to left, with left side facial droop. CTA head and neck being performed. He is not a tpa candidate as he had CABG on the . Will evaluate for LVO.
[2020-02-14] MEDS ORDERED: phenylephrine inj 50 MG in normal saline 250ml IV soln 250 ML IV SCH (15:00)
--- NOTE | 2020-02-14 15:00 | NUR ---
set up for telemed consult in ICU, discussed case with Dr. Bhandari. 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 Pt arrives from CT, b/p systolic 88, levophed started by bedside RN. awaiting neurologist. call made to [facility] of consult with interventional neuroradiologist.
[2020-02-14] MEDS ORDERED: NORepinephrine 8mg/ 250ml NS 250 ML IV ONE (15:05)
[2020-02-14] MEDS: phenylephrine inj 50 MG in normal saline 250ml IV soln 245 ML IV SCH (15:09)
--- NOTE | 2020-02-14 15:30 | NUR ---
Patient show much improvement, near his baseline after Levophed administration. Will continue to monitor, and neuro checks frequently.
--- NOTE | 2020-02-14 15:40 | NUR ---
2nd call to telemed to obtain neurology consult. pt symptoms are milder with increased B/p
--- NOTE | 2020-02-14 15:40 | NUR ---
Dr. Denney exams pt via telemedicine. Recommends antiplatlet therapy with Plavix and or ASA Keep systolic B/p 120 to 140 systolic X 24hours, if tolerates tomorrow 110 is acceptable No recommendation for endovascular consult MRI tomorrow She will discuss case with Dr. Bhandari
[2020-02-14] MEDS ORDERED: clopidogrel 300mg tablet PO ONE (16:15)
[2020-02-14] MEDS: NORepinephrine 8mg/ 250ml NS 250 ML IV SCH (17:33)
--- NOTE | 2020-02-14 18:15 | NUR ---
Problems reprioritized. Patient report given, questions answered & plan of care reviewed with Rach LINCOLN. Pt. is resting comfortably, blood infusion started. Pt. reports feeling better, symptoms improving.
--- NOTE | 2020-02-14 18:15 | NUR ---
Patient in room ICU 2042. I have received report from LATONIA Camargo and had the opportunity to ask questions and assume patient care. Patient has stoke alert today with left sided weakness and facial droop, symptoms are resolving. He is getting a unit of blood and is scheduled for another CT in the am. I will continue to monitor.
--- NOTE | 2020-02-14 21:00 | NUR ---
Patient started complaining of right facial pain "like a tooth ache" 11/26 and said he felt SOB. His heart rhythm was concerning for a BBB. I did an EKG that showed possible LBB and cld Dr. Bhandari. Dr. Bhandari was not concerned and gave no new orders. Patient is resting comfortable on gurney and I will continue to monitor.
[2020-02-15] VITALS (24 sets, daily range): BP systolic 102–143; BP diastolic 62–98
[2020-02-15 02:32] LABS: BASOPHILS % (AUTO) 0.1 % (0-1); EOSINOPHILS # (AUTO) 0.2 X10'3 (0-0.9); EOSINOPHILS % (AUTO) 1.6 % (0-6); HEMATOCRIT 29.5 % (42.0-52.0); HEMOGLOBIN 10.2 g/dl (14.0-17.9); LYMPHOCYTES # (AUTO) 0.7 X10'3 (1.1-4.8); LYMPHOCYTES % (AUTO) 5.4 % (21-51); MEAN CORPUSCULAR HEMOGLOBIN 34.1 PG (27.0-31.0); MEAN CORPUSCULAR HGB CONC 34.6 g/dL (33.0-36.5); MEAN CORPUSCULAR VOLUME 98.5 FL (78-98); MEAN PLATELET VOLUME 8.9 FL (7.4-10.4); MONOCYTES % (AUTO) 7.8 % (2-12); NEUTROPHILS % (AUTO) 85.1 % (42-75); PLATELET COUNT 118 X10'3 (140-440); RED CELL DISTRIBUTION WIDTH 16.4 % (11.5-14.5)
[2020-02-15 02:54] LABS: ANION GAP 4 (8-16); BLOOD UREA NITROGEN 28 MG/DL (7-18); BUN/CREATININE RATIO 23.7 (5.4-32.0); CALCIUM 8.4 MG/DL (8.5-10.1); CHLORIDE 104 MMOL/L (99-107); CREATININE 1.18 MG/DL (0.60-1.10); GLUCOSE 112 MG/DL (70-104); PHOSPHORUS 3.6 MG/DL (2.3-4.5); POTASSIUM 3.6 MMOL/L (3.5-5.1); SODIUM 138 MMOL/L (135-145); TOTAL CARBON DIOXIDE 29.6 MMOL/L (24-32); eGFR 61 ML/MIN
--- NOTE | 2020-02-15 06:33 | NUR ---
Problems reprioritized. Patient report given, questions answered & plan of care reviewed with LATONIA Grayson.
[2020-02-15] MEDS: clopidogrel 75mg tablet PO SCH (07:52)
[2020-02-15] MEDS: aspirin 325mg tablet, delayed-release (Ecotrin) PO SCH (07:52)
[2020-02-15] MEDS: furosemide 40mg tablet PO SCH ×2 (07:52→20:30)
[2020-02-15] MEDS: atorvastatin 10mg tablet PO SCH (07:52)
[2020-02-15] MEDS: pantoprazole 40mg Tablet.DR PO SCH (07:52)
[2020-02-15] MEDS: sennosides/docusate sodium tablet PO SCH ×2 (07:52→20:30)
[2020-02-15] MEDS: carVEDilol 3.125mg tablet PO SCH ×2 (08:00→20:00)
[2020-02-15] MEDS: phenylephrine inj 50 MG in normal saline 250ml IV soln 245 ML IV SCH (08:52)
[2020-02-15] MEDS: NORepinephrine 8mg/ 250ml NS 250 ML IV SCH ×2 (10:23→20:31)
--- NOTE | 2020-02-15 16:17 | NUR ---
Reassessment: Pt POD #5. Swallows ok per MD progress note. Last BM 02/13 moderate. Eating well post op, great appetite, eating 75-100% no concentrated sweets diet. Recommendations: 1) Continue no concentrated sweets diet 2) Monitor need for ONS/additional protein 3) Routine bowel care 4) Scaled weights per rx 5) Heart healthy and s/p cardiac surgery nutrition therapy educations once stable Addendum: 02/15/20 at [address] Amended: Links added.
[2020-02-15] MEDS: HYDROcodone/acetaminophen 10/325mg tab PO PRN (21:59)
[2020-02-16] VITALS (23 sets, daily range): BP systolic 103–140; BP diastolic 50–85
[2020-02-16] MEDS: phenylephrine inj 50 MG in normal saline 250ml IV soln 245 ML IV SCH (02:35)
[2020-02-16 03:34] LABS: BASOPHILS % (AUTO) 0.3 % (0-1); EOSINOPHILS # (AUTO) 0.2 X10'3 (0-0.9); EOSINOPHILS % (AUTO) 1.6 % (0-6); HEMATOCRIT 29.8 % (42.0-52.0); HEMOGLOBIN 10.3 g/dl (14.0-17.9); LYMPHOCYTES # (AUTO) 0.8 X10'3 (1.1-4.8); LYMPHOCYTES % (AUTO) 6.4 % (21-51); MEAN CORPUSCULAR HGB CONC 34.4 g/dL (33.0-36.5); MEAN CORPUSCULAR VOLUME 98.8 FL (78-98); MEAN PLATELET VOLUME 8.3 FL (7.4-10.4); MONOCYTES # (AUTO) 1.4 X10'3 (0-0.9); MONOCYTES % (AUTO) 11.3 % (2-12); NEUTROPHILS # (AUTO) 10.3 X10'3 (1.8-7.7); NEUTROPHILS % (AUTO) 80.4 % (42-75); PLATELET COUNT 130 X10'3 (140-440); RED BLOOD COUNT 3.01 X10'6 (4.70-6.10); RED CELL DISTRIBUTION WIDTH 16.5 % (11.5-14.5); WHITE BLOOD COUNT 12.8 X10'3 (4.5-11.0)
[2020-02-16 03:50] LABS: ALBUMIN 2.7 G/DL (3.4-5.0); ANION GAP 5 (8-16); BLOOD UREA NITROGEN 24 MG/DL (7-18); BUN/CREATININE RATIO 22.2 (5.4-32.0); CALCIUM 8.1 MG/DL (8.5-10.1); CHLORIDE 103 MMOL/L (99-107); CREATININE 1.08 MG/DL (0.60-1.10); GLUCOSE 115 MG/DL (70-104); MAGNESIUM 1.8 MG/DL (1.5-2.4); PHOSPHORUS 3.7 MG/DL (2.3-4.5); POTASSIUM 3.7 MMOL/L (3.5-5.1); SODIUM 137 MMOL/L (135-145); TOTAL CARBON DIOXIDE 29.3 MMOL/L (24-32); eGFR 67 ML/MIN
[2020-02-16] MEDS: carVEDilol 3.125mg tablet PO SCH (08:00)
[2020-02-16] MEDS: sennosides/docusate sodium tablet PO SCH ×2 (08:35→20:16)
[2020-02-16] MEDS: pantoprazole 40mg Tablet.DR PO SCH (08:35)
[2020-02-16] MEDS: clopidogrel 75mg tablet PO SCH (08:35)
[2020-02-16] MEDS: aspirin 81mg tablet.DR PO SCH (08:35)
[2020-02-16] MEDS: atorvastatin 10mg tablet PO SCH (08:35)
[2020-02-16] MEDS: midodrine 5mg tablet PO SCH ×3 (08:36→16:52)
[2020-02-16] MEDS: furosemide 40mg tablet PO SCH ×2 (08:36→20:16)
[2020-02-16] MEDS: NORepinephrine 8mg/ 250ml NS 250 ML IV SCH (13:14)
--- NOTE | 2020-02-16 18:15 | NUR ---
Patient in room ICU 2042. I have received report from Michel LINCOLN and had the opportunity to ask questions and assume patient care. Patient resting, BP is doing well, levo running at 0.05mcg. Will continue to monitor.
[2020-02-16] MEDS: HYDROcodone/acetaminophen 10/325mg tab PO PRN (20:19)
[2020-02-17] VITALS (24 sets, daily range): BP systolic 90–144; BP diastolic 56–88
[2020-02-17 02:47] LABS: BASOPHILS % (AUTO) 0.4 % (0-1); EOSINOPHILS # (AUTO) 0.2 X10'3 (0-0.9); EOSINOPHILS % (AUTO) 1.6 % (0-6); HEMATOCRIT 28.7 % (42.0-52.0); LYMPHOCYTES # (AUTO) 0.7 X10'3 (1.1-4.8); LYMPHOCYTES % (AUTO) 6.5 % (21-51); MEAN CORPUSCULAR HEMOGLOBIN 34.6 PG (27.0-31.0); MEAN PLATELET VOLUME 8.3 FL (7.4-10.4); MONOCYTES # (AUTO) 1.2 X10'3 (0-0.9); MONOCYTES % (AUTO) 10.4 % (2-12); NEUTROPHILS # (AUTO) 9.2 X10'3 (1.8-7.7); NEUTROPHILS % (AUTO) 81.1 % (42-75); PLATELET COUNT 132 X10'3 (140-440); RED BLOOD COUNT 2.89 X10'6 (4.70-6.10); RED CELL DISTRIBUTION WIDTH 16.2 % (11.5-14.5); WHITE BLOOD COUNT 11.3 X10'3 (4.5-11.0)
[2020-02-17 03:06] LABS: ALBUMIN 2.6 G/DL (3.4-5.0); ANION GAP 5 (8-16); BLOOD UREA NITROGEN 24 MG/DL (7-18); BUN/CREATININE RATIO 20.7 (5.4-32.0); CHLORIDE 103 MMOL/L (99-107); CREATININE 1.16 MG/DL (0.60-1.10); GLUCOSE 107 MG/DL (70-104); MAGNESIUM 1.8 MG/DL (1.5-2.4); PHOSPHORUS 3.4 MG/DL (2.3-4.5); POTASSIUM 3.9 MMOL/L (3.5-5.1); SODIUM 135 MMOL/L (135-145); TOTAL CARBON DIOXIDE 26.6 MMOL/L (24-32); eGFR 62 ML/MIN
[2020-02-17] MEDS: NORepinephrine 8mg/ 250ml NS 250 ML IV SCH ×2 (03:37→12:06)
[2020-02-17] MEDS: HYDROcodone/acetaminophen 10/325mg tab PO PRN (05:06)
[2020-02-17] MEDS ORDERED: amiodarone 150mg/dext, iso-os 100 ML IV ONE ×2 (05:15→05:16)
--- NOTE | 2020-02-17 05:15 | NUR ---
RN Note -MD Communication Called Doe Bhandari regarding pt went into rapid rate of 150's. Received order to start amiodarone drfreeman
[2020-02-17] MEDS: amiodarone/D5 360MG/200ML BAG 200 ML IV SCH ×4 (05:28→23:07)
--- NOTE | 2020-02-17 06:21 | NUR ---
Patient in room ICU 2042. I have received report from [facility] and had the opportunity to ask questions and assume patient care.
[2020-02-17] MEDS: sennosides/docusate sodium tablet PO SCH ×2 (08:04→20:24)
[2020-02-17] MEDS: midodrine 5mg tablet PO SCH ×3 (08:04→16:24)
[2020-02-17] MEDS: furosemide 40mg tablet PO SCH ×2 (08:04→20:24)
[2020-02-17] MEDS: potassium Cl 20 mEq SR tablet PO PRN (08:04)
[2020-02-17] MEDS: aspirin 81mg tablet.DR PO SCH (08:04)
[2020-02-17] MEDS: pantoprazole 40mg Tablet.DR PO SCH (08:05)
[2020-02-17] MEDS: atorvastatin 10mg tablet PO SCH (08:05)
[2020-02-17] MEDS: clopidogrel 75mg tablet PO SCH (08:05)
--- NOTE | 2020-02-17 08:45 | NUR ---
Berto Cornell at bedside. Aware of a-fib, and back on levo. No new orders received. Stated "he will convert back to SR on his own."
--- NOTE | 2020-02-17 09:30 | NUR ---
Pt converted back to SR.
[2020-02-17] MEDS ORDERED: ondansetron 4mg rapidly disintigrating tab PO PRN (16:15)
--- NOTE | 2020-02-17 18:09 | NUR ---
Problems reprioritized. Patient report given, questions answered & plan of care reviewed with
[2020-02-18] VITALS (24 sets, daily range): BP systolic 95–121; BP diastolic 56–75
[2020-02-18 04:08] LABS: ALBUMIN 2.6 G/DL (3.4-5.0); ANION GAP 6 (8-16); BLOOD UREA NITROGEN 25 MG/DL (7-18); BUN/CREATININE RATIO 19.2 (5.4-32.0); CALCIUM 7.7 MG/DL (8.5-10.1); CHLORIDE 102 MMOL/L (99-107); GLUCOSE 101 MG/DL (70-104); POTASSIUM 3.8 MMOL/L (3.5-5.1); SODIUM 134 MMOL/L (135-145); TOTAL CARBON DIOXIDE 25.7 MMOL/L (24-32); eGFR 54 ML/MIN
[2020-02-18 04:10] LABS: BASOPHILS % (AUTO) 0.3 % (0-1); EOSINOPHILS # (AUTO) 0.2 X10'3 (0-0.9); HEMATOCRIT 27.4 % (42.0-52.0); HEMOGLOBIN 9.3 g/dl (14.0-17.9); LYMPHOCYTES # (AUTO) 0.6 X10'3 (1.1-4.8); LYMPHOCYTES % (AUTO) 7.2 % (21-51); MEAN CORPUSCULAR HEMOGLOBIN 34.1 PG (27.0-31.0); MEAN CORPUSCULAR HGB CONC 34.1 g/dL (33.0-36.5); MEAN CORPUSCULAR VOLUME 100.1 FL (78-98); MEAN PLATELET VOLUME 8.5 FL (7.4-10.4); MONOCYTES # (AUTO) 0.8 X10'3 (0-0.9); MONOCYTES % (AUTO) 9.6 % (2-12); NEUTROPHILS # (AUTO) 6.5 X10'3 (1.8-7.7); NEUTROPHILS % (AUTO) 79.9 % (42-75); PLATELET COUNT 144 X10'3 (140-440); RED BLOOD COUNT 2.73 X10'6 (4.70-6.10); RED CELL DISTRIBUTION WIDTH 16.6 % (11.5-14.5); WHITE BLOOD COUNT 8.1 X10'3 (4.5-11.0)
[2020-02-18] MEDS: HYDROcodone/acetaminophen 10/325mg tab PO PRN ×2 (05:30→19:35)
--- NOTE | 2020-02-18 06:30 | NUR ---
Patient in room ICU 2042. I have received report from Michel LINCOLN and had the opportunity to ask questions and assume patient care.
[2020-02-18] MEDS ORDERED: furosemide 20MG tablet PO SCH (07:04)
[2020-02-18] MEDS: aspirin 81mg tablet.DR PO SCH (07:26)
[2020-02-18] MEDS: midodrine 5mg tablet PO SCH ×3 (07:26→16:15)
[2020-02-18] MEDS: sennosides/docusate sodium tablet PO SCH ×2 (07:26→20:18)
[2020-02-18] MEDS: atorvastatin 10mg tablet PO SCH (07:27)
[2020-02-18] MEDS: clopidogrel 75mg tablet PO SCH (07:27)
[2020-02-18] MEDS: pantoprazole 40mg Tablet.DR PO SCH (07:27)
[2020-02-18] MEDS: NORepinephrine 8mg/ 250ml NS 250 ML IV SCH (08:43)
--- NOTE | 2020-02-18 10:00 | NUR ---
Discussed blood pressure parameter with Dr. Bhandari who states that it is okay to titrate levo down slowly as long as patient's neuro status is maintained. States to titrate levo based on if patient exhibits any change in mental status. Lasix discontinued and amio drip converted to oral tablet. Will continue to monitor.
[2020-02-18] MEDS: amiodarone 200mg tablet PO SCH ×2 (13:02→20:18)
--- NOTE | 2020-02-18 15:59 | NUR ---
Reassessment: Pt seen at bedside provided with written and verbal heart healthy and s/p cardiac surgery nutrition therapy educations. Pt endorses a good appetite however states he has lost interest in food. Pt currently on a no concentrated sweets diet averaging 75% PO intake. Pt requests Ensure and agrees to yogurt and cottage cheese with meals. Pt denies food allergies or difficulty chewing/swallowing however reports some issues chewing broccoli. Pt reports some constipation with LBM 02/16 and receiving routine bowel care. Pt agrees to prunes and prune juice with dinner tonight. All food preferences were d/w dietary. Pt provided with RD contact information. Will continue to follow. Recommendations: 1) Continue no concentrated sweets diet 2) Yogurt BIDBD, cottage cheese q lunch, Ensure High Protein BIDBD, no broccoli 3) Routine bowel care 4) Scaled weights per rx Addendum: 02/18/20 at [address] Amended: Links added.
--- NOTE | 2020-02-18 18:18 | NUR ---
Problems reprioritized. Patient report given, questions answered & plan of care reviewed with Michel LINCOLN.
[2020-02-18] MEDS: lactose-reduced food (Ensure High Protein) 237ml bottle PO SCH (20:45)
[2020-02-19] VITALS (24 sets, daily range): BP systolic 89–135; BP diastolic 51–83
[2020-02-19] MEDS: HYDROcodone/acetaminophen 10/325mg tab PO PRN (02:33)
[2020-02-19 03:14] LABS: BASOPHILS % (AUTO) 0.5 % (0-1); EOSINOPHILS # (AUTO) 0.2 X10'3 (0-0.9); EOSINOPHILS % (AUTO) 3.2 % (0-6); HEMATOCRIT 27.5 % (42.0-52.0); HEMOGLOBIN 9.4 g/dl (14.0-17.9); LYMPHOCYTES # (AUTO) 0.6 X10'3 (1.1-4.8); LYMPHOCYTES % (AUTO) 8.1 % (21-51); MEAN CORPUSCULAR HEMOGLOBIN 34.1 PG (27.0-31.0); MEAN CORPUSCULAR VOLUME 100.4 FL (78-98); MONOCYTES # (AUTO) 0.7 X10'3 (0-0.9); NEUTROPHILS # (AUTO) 6.2 X10'3 (1.8-7.7); NEUTROPHILS % (AUTO) 79.2 % (42-75); PLATELET COUNT 154 X10'3 (140-440); RED BLOOD COUNT 2.74 X10'6 (4.70-6.10); RED CELL DISTRIBUTION WIDTH 16.5 % (11.5-14.5); WHITE BLOOD COUNT 7.8 X10'3 (4.5-11.0)
[2020-02-19 03:23] LABS: ALBUMIN 2.6 G/DL (3.4-5.0); ANION GAP 4 (8-16); BLOOD UREA NITROGEN 25 MG/DL (7-18); BUN/CREATININE RATIO 18.7 (5.4-32.0); CALCIUM 7.9 MG/DL (8.5-10.1); CHLORIDE 104 MMOL/L (99-107); CREATININE 1.34 MG/DL (0.60-1.10); GLUCOSE 102 MG/DL (70-104); POTASSIUM 4.4 MMOL/L (3.5-5.1); SODIUM 134 MMOL/L (135-145); TOTAL CARBON DIOXIDE 25.6 MMOL/L (24-32); eGFR 53 ML/MIN
[2020-02-19] MEDS: NORepinephrine 8mg/ 250ml NS 250 ML IV SCH ×2 (04:39→13:49)
[2020-02-19] MEDS: lactose-reduced food (Ensure High Protein) 237ml bottle PO SCH ×2 (07:30→17:30)
[2020-02-19] MEDS: midodrine 5mg tablet PO SCH ×3 (08:07→18:41)
[2020-02-19] MEDS: clopidogrel 75mg tablet PO SCH (08:08)
[2020-02-19] MEDS: pantoprazole 40mg Tablet.DR PO SCH (08:08)
[2020-02-19] MEDS: sennosides/docusate sodium tablet PO SCH ×2 (08:08→20:22)
[2020-02-19] MEDS: amiodarone 200mg tablet PO SCH ×3 (08:08→20:22)
[2020-02-19] MEDS: aspirin 81mg tablet.DR PO SCH (08:08)
[2020-02-19] MEDS: atorvastatin 10mg tablet PO SCH (08:08)
--- NOTE | 2020-02-19 18:20 | NUR ---
Patient in room ICU 2042. I have received report from LATONIA Gannon and had the opportunity to ask questions and assume patient care. Patient sitting up in bed resting comfortably, he is A&O x3, PHELAN and appropriate. I have just brought him his dinner and will continue to monitor.
[2020-02-20] VITALS (23 sets, daily range): BP systolic 94–138; BP diastolic 53–84
[2020-02-20 02:43] LABS: BASOPHILS % (AUTO) 0.4 % (0-1); EOSINOPHILS # (AUTO) 0.2 X10'3 (0-0.9); EOSINOPHILS % (AUTO) 1.9 % (0-6); HEMATOCRIT 27.6 % (42.0-52.0); HEMOGLOBIN 9.4 g/dl (14.0-17.9); LYMPHOCYTES # (AUTO) 0.5 X10'3 (1.1-4.8); LYMPHOCYTES % (AUTO) 6.1 % (21-51); MEAN CORPUSCULAR HEMOGLOBIN 34.2 PG (27.0-31.0); MEAN CORPUSCULAR HGB CONC 34.1 g/dL (33.0-36.5); MEAN CORPUSCULAR VOLUME 100.3 FL (78-98); MEAN PLATELET VOLUME 8.2 FL (7.4-10.4); MONOCYTES # (AUTO) 0.6 X10'3 (0-0.9); MONOCYTES % (AUTO) 6.5 % (2-12); NEUTROPHILS # (AUTO) 7.7 X10'3 (1.8-7.7); NEUTROPHILS % (AUTO) 85.1 % (42-75); PLATELET COUNT 162 X10'3 (140-440); RED BLOOD COUNT 2.75 X10'6 (4.70-6.10); RED CELL DISTRIBUTION WIDTH 16.8 % (11.5-14.5)
[2020-02-20 02:53] LABS: ALBUMIN 2.8 G/DL (3.4-5.0); ANION GAP 8 (8-16); BLOOD UREA NITROGEN 28 MG/DL (7-18); CALCIUM 8.3 MG/DL (8.5-10.1); CHLORIDE 102 MMOL/L (99-107); CREATININE 1.27 MG/DL (0.60-1.10); GLUCOSE 90 MG/DL (70-104); POTASSIUM 4.4 MMOL/L (3.5-5.1); SODIUM 134 MMOL/L (135-145); TOTAL CARBON DIOXIDE 24.3 MMOL/L (24-32); eGFR 56 ML/MIN
[2020-02-20] MEDS: NORepinephrine 8mg/ 250ml NS 250 ML IV SCH (04:22)
--- NOTE | 2020-02-20 06:17 | NUR ---
Problems reprioritized. Patient report given, questions answered & plan of care reviewed with LATONIA Mak.
[2020-02-20] MEDS: lactose-reduced food (Ensure High Protein) 237ml bottle PO SCH ×2 (07:30→17:30)
[2020-02-20] MEDS: pantoprazole 40mg Tablet.DR PO SCH (07:30)
[2020-02-20] MEDS: clopidogrel 75mg tablet PO SCH (08:00)
[2020-02-20] MEDS: midodrine 5mg tablet PO SCH ×3 (08:00→17:27)
[2020-02-20] MEDS: sennosides/docusate sodium tablet PO SCH ×2 (08:00→20:08)
[2020-02-20] MEDS: amiodarone 200mg tablet PO SCH ×3 (08:00→20:08)
[2020-02-20] MEDS: aspirin 81mg tablet.DR PO SCH (08:00)
[2020-02-20] MEDS: atorvastatin 10mg tablet PO SCH (08:00)
[2020-02-20] MEDS: potassium Cl 20 mEq SR tablet PO PRN (12:59)
--- NOTE | 2020-02-20 18:20 | NUR ---
Patient in room ICU 2042. I have received report from LATONIA Mak and had the opportunity to ask questions and assume patient care. Patient was sleeping when I brought dinner tray in, easily awoke and is appropriate.
[2020-02-21] VITALS (24 sets, daily range): BP systolic 98–132; BP diastolic 58–91
[2020-02-21] MEDS: HYDROcodone/acetaminophen 10/325mg tab PO PRN ×3 (00:18→22:29)
[2020-02-21 02:53] LABS: ALBUMIN 2.8 G/DL (3.4-5.0); ANION GAP 9 (8-16); BLOOD UREA NITROGEN 30 MG/DL (7-18); BUN/CREATININE RATIO 20.8 (5.4-32.0); CALCIUM 8.1 MG/DL (8.5-10.1); CHLORIDE 103 MMOL/L (99-107); CREATININE 1.44 MG/DL (0.60-1.10); GLUCOSE 90 MG/DL (70-104); POTASSIUM 4.6 MMOL/L (3.5-5.1); SODIUM 135 MMOL/L (135-145); eGFR 48 ML/MIN
[2020-02-21 03:08] LABS: BASOPHILS % (AUTO) 0.5 % (0-1); EOSINOPHILS # (AUTO) 0.1 X10'3 (0-0.9); HEMATOCRIT 28.4 % (42.0-52.0); HEMOGLOBIN 9.6 g/dl (14.0-17.9); LYMPHOCYTES # (AUTO) 0.5 X10'3 (1.1-4.8); LYMPHOCYTES % (AUTO) 5.4 % (21-51); MEAN CORPUSCULAR HEMOGLOBIN 34.3 PG (27.0-31.0); MEAN CORPUSCULAR HGB CONC 33.8 g/dL (33.0-36.5); MEAN CORPUSCULAR VOLUME 101.3 FL (78-98); MEAN PLATELET VOLUME 8.3 FL (7.4-10.4); MONOCYTES # (AUTO) 0.7 X10'3 (0-0.9); MONOCYTES % (AUTO) 6.5 % (2-12); NEUTROPHILS # (AUTO) 8.9 X10'3 (1.8-7.7); NEUTROPHILS % (AUTO) 86.6 % (42-75); PLATELET COUNT 200 X10'3 (140-440); RED BLOOD COUNT 2.81 X10'6 (4.70-6.10); WHITE BLOOD COUNT 10.2 X10'3 (4.5-11.0)
--- NOTE | 2020-02-21 06:12 | NUR ---
Problems reprioritized. Patient report given, questions answered & plan of care reviewed with LATONIA Winston.
--- NOTE | 2020-02-21 06:15 | NUR ---
Patient in room ICU 2042. I have received report from LATONIA Loyd and had the opportunity to ask questions and assume patient care.
[2020-02-21] MEDS: aspirin 81mg tablet.DR PO SCH (07:48)
[2020-02-21] MEDS: atorvastatin 10mg tablet PO SCH (07:48)
[2020-02-21] MEDS: clopidogrel 75mg tablet PO SCH (07:48)
[2020-02-21] MEDS: pantoprazole 40mg Tablet.DR PO SCH (07:48)
[2020-02-21] MEDS: sennosides/docusate sodium tablet PO SCH ×2 (07:49→19:32)
[2020-02-21] MEDS: midodrine 5mg tablet PO SCH ×3 (07:51→16:10)
[2020-02-21] MEDS: amiodarone 200mg tablet PO SCH ×2 (07:52→19:33)
[2020-02-21] MEDS: lactose-reduced food (Ensure High Protein) 237ml bottle PO SCH ×2 (08:05→18:25)
--- NOTE | 2020-02-21 18:13 | NUR ---
Problems reprioritized. Patient report given, questions answered & plan of care reviewed with LATONIA Loyd.
--- NOTE | 2020-02-21 18:15 | NUR ---
Patient in room ICU 2042. I have received report from LATONIA Winston and had the opportunity to ask questions and assume patient care. Patient is sleeping comfortably in bedside chair, he was easily awoke for dinner. No discharge today, still waiting on rehab placement.
--- NOTE | 2020-02-21 22:30 | NUR ---
Called Dr. Bhandari as patient is complaining of lower right leg pain and swelling below his vein harvest that is also, warm to touch. Per MD elevate the leg and he will medically manage. I gave the patient one [place] for leg pain 11/26.
[2020-02-22] VITALS (17 sets, daily range): BP systolic 102–126; BP diastolic 42–85
[2020-02-22 02:36] LABS: BASOPHILS # (AUTO) 0.1 X10'3 (0-0.2); BASOPHILS % (AUTO) 1.2 % (0-1); EOSINOPHILS # (AUTO) 0.2 X10'3 (0-0.9); HEMATOCRIT 28.2 % (42.0-52.0); HEMOGLOBIN 9.6 g/dl (14.0-17.9); LYMPHOCYTES # (AUTO) 0.5 X10'3 (1.1-4.8); LYMPHOCYTES % (AUTO) 5.1 % (21-51); MEAN CORPUSCULAR HEMOGLOBIN 34.3 PG (27.0-31.0); MEAN CORPUSCULAR HGB CONC 33.9 g/dL (33.0-36.5); MEAN CORPUSCULAR VOLUME 101.1 FL (78-98); MONOCYTES # (AUTO) 0.6 X10'3 (0-0.9); MONOCYTES % (AUTO) 6.1 % (2-12); NEUTROPHILS # (AUTO) 8.7 X10'3 (1.8-7.7); NEUTROPHILS % (AUTO) 85.6 % (42-75); PLATELET COUNT 205 X10'3 (140-440); RED BLOOD COUNT 2.79 X10'6 (4.70-6.10); RED CELL DISTRIBUTION WIDTH 16.8 % (11.5-14.5); WHITE BLOOD COUNT 10.1 X10'3 (4.5-11.0)
[2020-02-22 02:41] LABS: ALBUMIN 2.7 G/DL (3.4-5.0); ANION GAP 3 (8-16); BLOOD UREA NITROGEN 31 MG/DL (7-18); BUN/CREATININE RATIO 24.6 (5.4-32.0); CHLORIDE 105 MMOL/L (99-107); CREATININE 1.26 MG/DL (0.60-1.10); GLUCOSE 89 MG/DL (70-104); POTASSIUM 4.2 MMOL/L (3.5-5.1); SODIUM 134 MMOL/L (135-145); TOTAL CARBON DIOXIDE 25.6 MMOL/L (24-32); eGFR 56 ML/MIN
[2020-02-22] MEDS: lactose-reduced food (Ensure High Protein) 237ml bottle PO SCH (07:30)
[2020-02-22] MEDS: clopidogrel 75mg tablet PO SCH (08:34)
[2020-02-22] MEDS: amiodarone 200mg tablet PO SCH (08:35)
[2020-02-22] MEDS: aspirin 81mg tablet.DR PO SCH (08:35)
[2020-02-22] MEDS: atorvastatin 10mg tablet PO SCH (08:35)
[2020-02-22] MEDS: midodrine 5mg tablet PO SCH ×2 (08:35→12:47)
[2020-02-22] MEDS: sennosides/docusate sodium tablet PO SCH (08:35)
[2020-02-22] MEDS: pantoprazole 40mg Tablet.DR PO SCH (08:35)
--- NOTE | 2020-02-22 08:45 | NUR ---
Merari Uribe PEGA DEVELOPER called about the venous ultrasound conducted on pt's right leg. Results were read to her, and she stated that due to the location of the vein, just continue with leg elevation when possible and any other prior interventions already ordered. There was no need for further orders.
[2020-02-22] MEDS ORDERED: CLOP75TA35 PO (11:59)
[2020-02-22] MEDS ORDERED: MIDO5TAB4 PO (11:59)
[2020-02-22] MEDS ORDERED: AMIO200T61 PO (11:59)
[2020-02-22] MEDS ORDERED: WALK1EAC55 MC (12:01)
--- NOTE | 2020-02-22 16:30 | NUR ---
Patient stable for discharge per Dr. Bhandari. Per [facility] home health unavailable in area where pt lives. Relayed this information to Dr. Bhandari, although not preferable, pt still able to be discharged. Education provided on sternal precautions, stroke warnings signs, smoking cassation, and aftercare regarding CABG and valve replacements. Pt educated on new medications prescribed: Plavix, Amiodarone, and Midodrine. Pt instructed to continue taking other home medications, but stop Coreg. List given to patient regarding this information. New medications sent to [facility] in [place], and a paper script for [place] was given to pt take to pharmacy. FWW ordered from [employer] and delivered to patient to take home. pt had all belongings. Patient wheeled off unit by staff editor to waiting car with friends. Appointments made with Dr. LEE in [place] for 0830, Dr. Golden 02/18/ at 1020 and finally Elisabet Hyatt on 03/06 at 1000. Central line removed from RIJ, patient tolerated well.
== END 2020-02-22 16:34 | disposition home health service (06) | DRG 216 ==
LOC: SSTAY O 11:26 → PCU 3S 21:55 → SSTAY O 02-07 09:59 → PCU 3S 02-07 10:00 → ICU 2S 02-10 10:09
PROVIDERS: ADMIT Thoracic Surgery (Cardiothoracic Vascular Surgery); ATTEND Thoracic Surgery (Cardiothoracic Vascular Surgery)
PROC: 4A023N7 Measurement of Cardiac Sampling and Pressure, Left Heart, Percutaneous Approach (ICD-10-PCS; principal; 2020-02-06)
PROC: B2111ZZ Fluoroscopy of Multiple Coronary Arteries using Low Osmolar Contrast (ICD-10-PCS; 2020-02-06)
PROC: 02RF0JZ Replacement of Aortic Valve with Synthetic Substitute, Open Approach (ICD-10-PCS; 2020-02-10)
PROC: 02RG0JZ Replacement of Mitral Valve with Synthetic Substitute, Open Approach (ICD-10-PCS; 2020-02-10)
PROC: 06BY4ZZ Excision of Lower Vein, Percutaneous Endoscopic Approach (ICD-10-PCS; 2020-02-10)
PROC: 021 Heart and Great Vessels, Bypass (ICD-10-PCS; 2020-02-10)
PROC: 0WJC0ZZ Inspection of Mediastinum, Open Approach (ICD-10-PCS; 2020-02-10)
PROC: B24BZZ4 Ultrasonography of Heart with Aorta, Transesophageal (ICD-10-PCS; 2020-02-10)
PROC: 30233L1 Transfusion of Nonautologous Fresh Plasma into Peripheral Vein, Percutaneous Approach (ICD-10-PCS; 2020-02-10)
PROC: 30233N1 Transfusion of Nonautologous Red Blood Cells into Peripheral Vein, Percutaneous Approach (ICD-10-PCS; 2020-02-10)
PROC: 30233R1 Transfusion of Nonautologous Platelets into Peripheral Vein, Percutaneous Approach (ICD-10-PCS; 2020-02-10)
PROC: 30233M1 Transfusion of Nonautologous Plasma Cryoprecipitate into Peripheral Vein, Percutaneous Approach (ICD-10-PCS; 2020-02-10)
PROC: 30233K1 Transfusion of Nonautologous Frozen Plasma into Peripheral Vein, Percutaneous Approach (ICD-10-PCS; 2020-02-10)
DX: I08.0 Rheumatic disorders of both mitral and aortic valves (principal); N17.0 Acute kidney failure with tubular necrosis; I63.411 Cerebral infarction due to embolism of right middle cerebral artery; I50.42 Chronic combined systolic (congestive) and diastolic (congestive) heart failure; I25.110 Atherosclerotic heart disease of native coronary artery with unstable angina pectoris; R04.89 Hemorrhage from other sites in respiratory passages; I13.0 Hypertensive heart and chronic kidney disease with heart failure and stage 1 through stage 4 chronic kidney disease, or unspecified chronic kidney disease; I65.29 Occlusion and stenosis of unspecified carotid artery; N18.3 Chronic kidney disease, stage 3 (moderate); G62.9 Polyneuropathy, unspecified; I77.810 Thoracic aortic ectasia; I70.0 Atherosclerosis of aorta; I48.91 Unspecified atrial fibrillation; Z85.46 Personal history of malignant neoplasm of prostate; Z85.71 Personal history of Hodgkin lymphoma; Z92.3 Personal history of irradiation; Z95.1 Presence of aortocoronary bypass graft; Z95.3 Presence of xenogenic heart valve; Z98.61 Coronary angioplasty status; E78.5 Hyperlipidemia, unspecified; Z20.828 Contact with and (suspected) exposure to other viral communicable diseases
CPT/HCPCS: 0232T; 93306; 93312; 93325; 93458; 36415; 36430; 36600; 70450; 70496; 70498; 71045; 71046; 71275; 80048; 80053; 80061; 81003; 82330; 82435; 82803; 82947; 82948; 83036; 83735; 84100; 84132; 84295; 85018; 85025; 85027; 85347; 85384; 85576; 85610; 85730; 86885; 86900; 86901; 86920; 87081; 87635; 88300; 93005; 93880; 93970; 93971; 94002; 94003; 94010; 94668; 94760; 97110; 97116; 97161; 97530; 97535; 99152; 99153; A4618; A6258; A6402; A6449; A7000; A7048; C1713; C1751; C1760; C1769; C9113; C9132; C9250; G0378; J0171; J0690; J1100; J1644; J1815; J1940; J2001; J2060; J2150; J2250; J2270; J2370; J2597; J2704; J2720; J2795; J2930; J3010; J3370; J3475; J3480; J3490; J7030; J7040; J7050; J7060; J7120; P9012; P9016; P9035; P9045; P9047; P9059; Q0163; Q9967

== ENCOUNTER 2020-03-16 11:13 | Emergency (ER) | payer MEDICARE, MEDICAID ==
[~2020-03-16] VITALS: Ht 182.9 cm; Wt 94.5 kg
[~2020-03-16 11:13] MED LIST changes: +AMIO200T61 PO; +ATOR40TA PO; -CARV3.122 PO; -CLOP75TA33 PO; +CLOP75TA35 PO; +HYDR-4353 PO; -LISI-600 PO; +MIDO5TAB4 PO; +WALK1EAC55 MC
[2020-03-16] MEDS ORDERED: normal saline 1000ml 1,000 ML IV ONE (11:24)
[2020-03-16 11:40] LABS: BASOPHILS # (AUTO) 0.1 X10'3 (0-0.2); BASOPHILS % (AUTO) 0.6 % (0-1); EOSINOPHILS # (AUTO) 0.1 X10'3 (0-0.9); EOSINOPHILS % (AUTO) 0.6 % (0-6); HEMATOCRIT 33.1 % (42.0-52.0); HEMOGLOBIN 11.1 g/dl (14.0-17.9); LYMPHOCYTES # (AUTO) 0.6 X10'3 (1.1-4.8); LYMPHOCYTES % (AUTO) 6.5 % (21-51); MEAN CORPUSCULAR HEMOGLOBIN 34.7 PG (27.0-31.0); MEAN CORPUSCULAR HGB CONC 33.5 g/dL (33.0-36.5); MEAN CORPUSCULAR VOLUME 103.6 FL (78-98); MEAN PLATELET VOLUME 8.1 FL (7.4-10.4); MONOCYTES # (AUTO) 0.6 X10'3 (0-0.9); MONOCYTES % (AUTO) 6.8 % (2-12); NEUTROPHILS # (AUTO) 8.1 X10'3 (1.8-7.7); NEUTROPHILS % (AUTO) 85.5 % (42-75); PLATELET COUNT 144 X10'3 (140-440); RED BLOOD COUNT 3.19 X10'6 (4.70-6.10); RED CELL DISTRIBUTION WIDTH 17.7 % (11.5-14.5); WHITE BLOOD COUNT 9.5 X10'3 (4.5-11.0)
[2020-03-16 11:41] LABS: PARTIAL THROMBOPLASTIN TIME 30 SECONDS (22-32)
[2020-03-16 11:44] LABS: ALANINE AMINOTRANSFERASE 45 U/L (12-78); ALBUMIN 3.1 G/DL (3.4-5.0); ALBUMIN/GLOBULIN RATIO 0.5 (1.1-1.5); ALKALINE PHOSPHATASE 179 IU/L (46-116); ANION GAP 10 (8-16); ASPARTATE AMINO TRANSFERASE 36 U/L (10-37); BILIRUBIN,TOTAL 1.4 MG/DL (0.1-1.0); BLOOD UREA NITROGEN 36 MG/DL (7-18); BUN/CREATININE RATIO 22.1 (5.4-32.0); CALCIUM 7.9 MG/DL (8.5-10.1); CHLORIDE 105 MMOL/L (99-107); CREATININE 1.63 MG/DL (0.60-1.10); GLUCOSE 156 MG/DL (70-104); POTASSIUM 4.3 MMOL/L (3.5-5.1); SODIUM 135 MMOL/L (135-145); TOTAL CARBON DIOXIDE 20.4 MMOL/L (24-32); TOTAL PROTEIN 8.8 G/DL (6.4-8.2); eGFR 42 ML/MIN
[2020-03-16 11:50] LABS: MAGNESIUM 2.1 MG/DL (1.5-2.4)
[2020-03-16 13:30] VITALS: BP 140/91
== END 2020-03-16 13:35 | disposition home or self-care (01) ==
LOC: ER 11:14
DX: I31.3 Pericardial effusion (noninflammatory) (principal); N18.9 Chronic kidney disease, unspecified; E86.0 Dehydration; I25.10 Atherosclerotic heart disease of native coronary artery without angina pectoris; R06.02 Shortness of breath; Z95.1 Presence of aortocoronary bypass graft; Z79.82 Long term (current) use of aspirin; Z79.899 Other long term (current) drug therapy
CPT/HCPCS: 36415; 71045; 80053; 83735; 83880; 84484; 85025; 85610; 85730; 93005; 99285

== ENCOUNTER 2022-05-19 09:40 | Day surgery (SDC) | payer MEDICARE, MEDICAID ==
[2022-05-19] VITALS (10 sets, daily range): BP systolic 107–130; BP diastolic 60–82
[~2022-05-19] VITALS: Ht 182.9 cm; Wt 99.1 kg
[~2022-05-19 09:40] MED LIST changes: -AMIO200T61 PO; +APIX5TAB3 PO; +CARV3.12 PO; -CLOP75TA35 PO; +DEXA2TAB PO; +DEXA4TAB68 PO; +LEVO25TA2 PO; -MIDO5TAB4 PO; +POTA-208 PO
[2022-05-19] MEDS ORDERED: fentaNYL/PF 50MCG/1 ML 2ML syringe IV ONE (10:30)
[2022-05-19] MEDS ORDERED: normal saline 1000ml 1,000 ML IV SCH (10:30)
[2022-05-19] MEDS ORDERED: MIDAZolam 1mg/ml 10ml vial IV ONE (10:30)
[2022-05-19] MEDS ORDERED: diphenhydrAMINE 25mg capsule PO PRN (10:35)
[2022-05-19] MEDS ORDERED: LORazepam 0.5 MG tablet PO PRN (10:35)
[2022-05-19] MEDS ORDERED: normal saline 1,000 ML IV SCH (10:35)
[2022-05-19 12:45] LABS: BASOPHILS % (AUTO) 0.7 % (0-1); EOSINOPHILS # (AUTO) 0.1 X10'3 (0-0.9); EOSINOPHILS % (AUTO) 2.4 % (0-6); HEMATOCRIT 30.7 % (42.0-52.0); HEMOGLOBIN 10.3 g/dl (14.0-17.9); LYMPHOCYTES # (AUTO) 0.7 X10'3 (1.1-4.8); LYMPHOCYTES % (AUTO) 17.4 % (21-51); MEAN CORPUSCULAR HEMOGLOBIN 36.4 PG (27.0-31.0); MEAN CORPUSCULAR HGB CONC 33.6 g/dL (33.0-36.5); MEAN CORPUSCULAR VOLUME 108.5 FL (78-98); MONOCYTES # (AUTO) 0.4 X10'3 (0-0.9); MONOCYTES % (AUTO) 9.8 % (2-12); NEUTROPHILS # (AUTO) 2.7 X10'3 (1.8-7.7); NEUTROPHILS % (AUTO) 69.7 % (42-75); PLATELET COUNT 106 X10'3 (140-440); RED BLOOD COUNT 2.83 X10'6 (4.70-6.10); WHITE BLOOD COUNT 3.9 X10'3 (4.5-11.0)
[2022-05-19] MEDS ORDERED: POTA-192 PO (12:51)
[2022-05-19] MEDS ORDERED: ESCI-8 PO (12:51)
[2022-05-19] MEDS ORDERED: FURO20TA4 PO (12:51)
[2022-05-19] MEDS ORDERED: LIDO700A47 TOP (12:51)
[2022-05-19] MEDS ORDERED: CALC-1276 PO (12:51)
[2022-05-19] MEDS ORDERED: OXYC1TAB17 PO (12:51)
[2022-05-19] MEDS ORDERED: PRAV40TA3 PO (12:51)
[2022-05-19] MEDS ORDERED: SACU1TAB PO (12:51)
[2022-05-19] MEDS ORDERED: FLUT1BLS4 INH (12:51)
[2022-05-19 12:56] LABS: ALBUMIN 2.5 G/DL (3.4-5.0); ANION GAP 6 (8-16); APTT 28 SECONDS (22-32); BLOOD UREA NITROGEN 22 MG/DL (7-18); BUN/CREATININE RATIO 16.4 (5.4-32.0); CALCIUM 8.1 MG/DL (8.5-10.1); CHLORIDE 104 MMOL/L (99-107); CREATININE 1.34 MG/DL (0.60-1.10); GLUCOSE 79 MG/DL (70-104); POTASSIUM 4.3 MMOL/L (3.5-5.1); SODIUM 132 MMOL/L (135-145); TOTAL CARBON DIOXIDE 22.5 MMOL/L (24-32); eGFR 52 ML/MIN
[2022-05-19] MEDS ORDERED: LIDOcaine 1% 30ml preserv. free vial ONE (14:53)
[2022-05-19] MEDS ORDERED: iohexol 350MG/ML 100ml bottle IV ONE (14:53)
[2022-05-19] MEDS ORDERED: iohexol 350 MG/ML 50ML vial IV ONE (14:53)
[2022-05-19] MEDS ORDERED: proCHLORperazine 10 MG/2 ml inj ONE (16:41)
[2022-05-19] MEDS ORDERED: fentaNYL/PF 50MCG/1 ML 2ML syringe ONE (16:41)
[2022-05-19] MEDS ORDERED: midazolam 1 mg/ML 2ml injection ONE ×2 (16:41→17:19)
[2022-05-19] MEDS ORDERED: heparin 1,000unit/ml 10ml vial 10 ML ONE (17:40)
[2022-05-19] MEDS ORDERED: nitroGLYCERIN-Tridil 50MG/D5W 250 ML IV ONE (17:40)
[2022-05-19] MEDS ORDERED: verapamil 2.5 mg/ml inj IV ONE (17:40)
== END 2022-05-19 20:50 | disposition home or self-care (01) ==
LOC: SSTAY O 09:40
PROVIDERS: ATTEND Student in an Organized Health Care Education/Training Program
DX: R94.39 Abnormal result of other cardiovascular function study (principal); I25.10 Atherosclerotic heart disease of native coronary artery without angina pectoris; I11.0 Hypertensive heart disease with heart failure; I05.0 Rheumatic mitral stenosis; I50.9 Heart failure, unspecified; I35.0 Nonrheumatic aortic (valve) stenosis; Z79.899 Other long term (current) drug therapy; Z98.890 Other specified postprocedural states; Z95.1 Presence of aortocoronary bypass graft
CPT/HCPCS: 36415; 80048; 85025; 85610; 85730; 87070; 87075; 87077; 87186; 93005; 93455; 99152; 99153; A6258; C1769; C1894; J0780; J1644; J2250; J3010; J3490; J7030; Q9967; A4620; A5120; A6402